=== PATIENT | female | born 1985 | race Caucasian/White ===

== ENCOUNTER → 2018-01-07 11:58 | Outpatient (CLI) | payer OTHER, SELFPAY | PROVIDERS: PCP Nurse Practitioner Family; Visit Provider Nurse Practitioner Family | DX: R00.0 Tachycardia, unspecified (principal) | CPT/HCPCS: 93225; 93226 ==

== ENCOUNTER → 2018-06-04 15:56 | Outpatient (CLI) | payer OTHER, SELFPAY ==
--- NOTE | 2018-06-04 16:13 | XR_ITS ---
EXAM: XR cervical spine 4V HISTORY: Neck pain ITS.REASON: CERVICALGIA ORDERING PHYSICIAN: Nitza Golden PATIENT AGE: 32 years COMPARISON: None FINDINGS: There is slight reversal of the upper cervical lordosis. This is nonspecific and may be due to patient positioning or muscle spasm. There is normal alignment. The disc spaces are well-preserved. No fracture or dislocation. No lytic or blastic change. No evidence of cervical rib. The foramina are widely patent. There is mild head tilt to the right which could also be seen with muscle spasm. IMPRESSION: 1. Slight reversal lordosis and minimal cervical curvature convex left may be seen with muscle spasm or patient positioning 2. Otherwise negative cervical spine
[2018-06-04 17:02] LABS: T4 (Thyroxine) 10.2 ug/dl (4.7-13.3); Thyroid Stimulating Hormone 3.27 uIU/ml (0.358-3.740)
[2018-06-07 09:32] LABS: Triiodothyronine (T3) Free 2.6 pg/mL (2.0-4.4)
== END ==
PROVIDERS: PCP Nurse Practitioner Family; Visit Provider Nurse Practitioner Family
DX: E01.0 Iodine-deficiency related diffuse (endemic) goiter (principal); M54.2 Cervicalgia
CPT/HCPCS: 36415; 72050; 84436; 84443; 84481

== ENCOUNTER 2018-06-21 20:45 | Observation (INO) ==
--- NOTE | 2018-06-21 21:03 | Emergency Department Note ---
ED Disposition Clinical Impression: Right ureteral calculus, Pyelonephritis Disposition: Still a Patient Condition on Discharge: Fair Referrals: Nitza Golden APRN [Primary Care Provider] - - Critical Care Critical Care Time: No Attestation: On , the high probability of a clinically significant, sudden or life threatening deterioration of the following system(s) required my full and direct attention, intervention and personal management. The time I documented below is in addition to time spent performing reported procedures but includes the following listed in this critical care notation. Medical Decision Making - Cj Inquiry Pt receiving controlled substance: No Vital Signs: 06/21/18 20:49 06/21/18 20:51 06/21/18 22:45 Temperature 100.0 F H 100.0 F H 98.6 F Temperature Source Oral Oral Oral Pulse Rate [Right Brachial] 138 H 138 H 105 H Respiratory Rate 16 16 16 Blood Pressure [Right Arm] 150/86 150/86 147/90 Blood Pressure Mean [Right Arm] 107 107 109 Blood Pressure Source [Right Arm] Automatic Cuff Automatic Cuff Blood Pressure Position [Right Arm] Sitting Sitting 02 Sat by Pulse Oximetry 98 98 97 Oxygen Delivery Method Room Air - Lab Data Lab Results 06/21/18 21:00: Urine Color Yellow, Urine Appearance Clear, Urine pH 7.5, Ur Specific [place] 1.010, Urine Protein Negative, Urine Glucose (UA) Negative, Urine Ketones Negative, Urine Blood Negative, Urine Nitrate Positive, Urine Bilirubin Negative, Urine Urobilinogen 0.2, Ur Leukocyte Esterase Trace, Urine RBC Occasional, Urine WBC 3-5, Ur Squamous Epith Cells 5-10, Urine Bacteria 1+ 06/21/18 21:00: Urine HCG, Qual Negative 06/21/18 21:20: WBC 11.6 H, RBC 4.76, Hgb 10.5 L, Hct 33.1 L, MCV 69.5 L, MCH 22.0 L, MCHC 31.7 L, RDW 16.1, Plt Count 297, MPV 7.0 L, Neut % (Auto) 85.3 H, Lymph % (Auto) 10.7, [place] % (Auto) 3.5, Eos % (Auto) 0.4, Baso % (Auto) 0.2, Neut # (Auto) 9.9 H, Lymph # (Auto) 1.2, [place] # (Auto) 0.4, Eos # (Auto) 0.0, Baso # (Auto) 0.0, Total Counted 100, Neutrophils % (Manual) 84 H, Lymphocytes % (Manual) 12, Monocytes % (Manual) 4, Platelet Estimate Normal, RBC Morphology Normal 06/21/18 21:20: Sodium 130 L, Potassium 3.5, Chloride 101, Carbon Dioxide 26, Anion Gap 6.5, BUN 7, Creatinine 0.70, Estimated Creat Clear 150, Estimated GFR 98, Est GFR ( Amer) 119, Glucose 110 H, Calcium 8.9, Total Bilirubin 0.3 , AST 8 L, ALT 21, Alkaline Phosphatase 86, Total Protein 7.6, Albumin 3.4, Globulin 4.2 H, Albumin/Globulin Ratio 0.8 L 06/21/18 21:20: Lactic Acid 0.9 Result diagrams: 06/21/18 21:20 06/21/18 21:20 Orders (Tests/Meds): ED MEDICATIONS Generic Name Dose Route Start Last Admin Trade Name Freq PRN Reason Stop Dose Admin Cefepime HCl 2 gm/ Sodium 100 mls @ 200 mls/hr 06/21/18 23:00 06/21/18 23:13 Chloride IV 07/05/18 22:59 200 mls/hr Q12H INEZ Administration Protocol Discontinued Medications Generic Name Dose Route Start Last Admin Trade Name Surendraq PRN Reason Stop Dose Admin Acetaminophen 1,000 mg 06/21/18 20:59 06/21/18 21:07 Tylenol 500mg Tablet PO 06/21/18 21:00 1,000 mg ONCE ONE Administration Sodium Chloride 1,000 mls @ 999 mls/hr 06/21/18 21:00 06/21/18 21:17 Sod Chlor 0.9% 1000ml Bag IV 06/21/18 22:00 999 mls/hr .Q1H1M INEZ Administration Iopamidol 75 ml 06/21/18 22:16 06/21/18 22:17 [id number]; 75ml Vial IV 06/21/18 22:17 75 ml ONCE ONE Administration Ketorolac Tromethamine 30 mg 06/21/18 20:57 06/21/18 21:34 Toradol 30mg/Ml Vial IV 06/21/18 20:58 30 mg ONCE ONE Administration Ondansetron HCl 4 mg 06/21/18 20:57 06/21/18 22:42 Zofran 4mg/2ml Vial IV 06/21/18 20:58 Not Given ONCE ONE Sodium Chloride 10 ml 06/21/18 22:16 06/21/18 22:17 Rad-Saline Flush 10ml Syringe IV 06/21/18 22:17 10 ml ONCE ONE Administration ORDERS Category Date Time Status CT abdomen pelvis w con Stat Cat Scan 06/21/18 21:31 Taken - CT Data CT Scan: Abdomen, Pelvis Time Received: 22:[address] Reviewed: Yes: I have viewed the radiologist's interpretation Findings Narrative: CT scan interpreted by [facility] radiologist. Faxed report received and reviewed: Obstructing 3.6 mm distal right ureteral calculus just proximal to the right UVJ with associated right hydroureter and moderate-marked right hydronephrosis. Suspected 2.5 x 2.8 cm right ovarian simple cyst. - Physician Consults Physician Consulted: Bhanu Time: 23:15 Reason -: Urology Eval/Care Comment/Response: May admit here as he will be here tomorrow. Admit to primary care, n.p.o. Antibiotics. Consult him. Additional Consult: Doni Time: 23:20 Reason -: Admission Comment/Response: Agrees to admit the patient to the hospital. We discussed the patient's clinical information, including history, exam, laboratory and radiology results and ED course. Per hospital procedure, I will write temporary bridge inpatient orders on the patient. Specific orders requested by the admitting physician: As per Dr. Drummond General Adult HPI - General Chief complaint: Urogenital-Female Stated complaint: possible uti Time Seen by Provider: 06/21/18 21:02 Mode of Arrival: Ambulatory Limitations: No Limitations Description of Symptoms (Recalled from ER Triage Doc. by RN): Reports she thinks she has a UTI, fever, lower abd pain. Burning sensation with urination. Requests ED. - History of Present Illness HPI narrative: He believes that she has a UTI. Since yesterday she has had some burning dysuria, improved today with Azo. Low back pain bilaterally. Suprapubic abdominal pain. Fever. She has a constant tremor, and this is chronic, no acute wrist. History of infrequent UTIs, every year or 2. Nausea, but no vomiting. No diarrhea. No vaginal discharge. Last intercourse was on Thursday 2 days ago. She did have pain with it at that time, which is not typical. - Related Data Home Medications Medication Instructions Recorded Confirmed Losartan Potassium 25 mg PO DAILY 06/21/18 06/21/18 Allergies Allergy/AdvReac Type Severity Reaction Status Date / Time morphine [MORPHINE] Allergy Unknown hvies Verified 06/21/18 20:55 Penicillins [PENICILLINS] Allergy Unknown Hives Verified 06/21/18 20:55 Beta-Blockers AdvReac Severe heart Verified 06/21/18 20:56 (Beta-Adrenergic Bloc arrythmia From COCONUT (FOOD/DRUG) Allergy Unknown Hives Uncoded 06/21/18 20:[address] [facility] History I have reviewed the patient's past medical history: Yes Medical History: Denies:: Cancer, Diabetes Mellitus Type 1, Diabetes Mellitus Type 2, MRSA Amputation: No Fractures: No - Social History Alcohol Intake: never - Psychiatric History Expresses thoughts of harming self/others: None Suicide Plan Description: No Plan ROS Obtained: Yes All systems reviewed & no additional complaints - Constitutional Constitutional: Reports fever(s) - Gastrointestinal Gastrointestingal: Reports: abdominal pain, nausea. Denies: vomiting - Genitourinary Female Genitourinary: Reports dysuria - Musculoskeletal Musculoskeletal: Reports back pain Physical Exam - General General appearance: alert, in no apparent distress - Head Head exam: atraumatic, normocephalic, normal inspection - Eye Eye exam: Present: normal appearance, PERRL, EOMI - ENT ENT exam: Present: mucous membranes moist - Neck Neck exam: Present: normal inspection, full ROM, trachea midline. Absent: meningismus, lymphadenopathy - Chest Chest inspection: Present: normal inspection, symmetric chest wall rise. Absent : tenderness - Respiratory Respiratory exam: Present: normal lung sounds bilaterally. Absent: respiratory distress - Cardiovascular Cardiovascular exam: Present: normal rhythm, tachycardia. Absent: JVD - Abdominal Exam Abdominal exam: Present: soft, tenderness, normal bowel sounds. Absent: distention, guarding Abdominal tenderness: Present: suprapubic - Extremities Exam Extremities exam: Present: normal inspection, full ROM, normal capillary refill. Absent: calf tenderness - Back Exam Back exam: Present: normal inspection. Absent: tenderness, CVA tenderness (R), CVA tenderness (L) - Neurological Exam Neurological exam: Present: alert, oriented X3 - Psychiatric Psychiatric exam: Present: normal affect, normal mood - Skin Skin exam: Present: warm, dry, intact, normal color
[2018-06-21 21:07] LABS: Microscopic, Urine URINE MICROSCOPIC (MICROSCOPIC)
[2018-06-21 21:10] LABS: Appearance,Urine CLEAR (Clear); Bilirubin,Urine Negative (Negative); Blood, Urine Negative (Negative); Color,Urine YELLOW (Yellow); Glucose,Urine (UA) Negative (Negative); Ketones,Urine Negative (Negative); Leukocyte Esterase,Urine TRACE (Negative); PH,Urine 7.5 (5.0-8.5); Protein,Urine Negative (Negative); Urobilinogen,Urine 0.2 EU/dl (0.2)
[2018-06-21 21:22] LABS: Bacteria,Urine 1+ /lpf; RBC,Urine Occasional #/hpf (0-3)
[2018-06-21 21:33] LABS: Basophils % 0.2 % (0.1-2.0); Eosinophils % 0.4 % (0.1-12.0); Hematocrit 33.1 % (37.0-47.0); Hemoglobin 10.5 g/dL (12.2-16.2); Lymphocytes # 1.2 K/mm3 (0.7-4.5); Lymphocytes % 10.7 K/mm3 (10-50); Mean Corpuscular HGB Conc 31.7 g/dL (31.8-35.4); Mean Corpuscular Volume 69.5 fl (81-99); Monocytes # 0.4 K/mm3 (0.1-1.0); Monocytes % 3.5 % (1.7-9.3); Neutrophils # 9.9 K/mm3 (1.8-7.8); Neutrophils % 85.3 % (37.0-80.0); Platelet Count 297 K/mm3 (142-424); Red Blood Count 4.76 M/mm3 (4.20-5.40); Red Cell Distribution Width 16.1 % (11.5-17.5); White Blood Count 11.6 K/mm3 (4.8-10.8)
[2018-06-21 21:45] LABS: Albumin Level 3.4 gm/dL (3.4-5.0); Albumin/Globulin Ratio 0.8 (1.1-1.8); Bilirubin,Total 0.3 mg/dL (0.2-1.0); Calcium 8.9 mg/dL (8.5-10.1); Globulin 4.2 gm/dl (1.3-3.2); Total Protein,Serum 7.6 gm/dL (6.4-8.2)
[2018-06-21 21:52] LABS: Anion Gap 6.5 mEq/L (5-15); Potassium 3.5 mmoL/L (3.5-5.1)
[2018-06-21 22:26] LABS: Lymphocytes % 12 % (10-50); Monocytes % 4 % (2-9); Neutrophils % 84 % (42-76); RBC Morphology Normal; Total Cells Counted 100
[2018-06-22 06:50] LABS: Basophils % 0.3 % (0.1-2.0); Eosinophils % 0.4 % (0.1-12.0); Lymphocytes # 1.2 K/mm3 (0.7-4.5); Lymphocytes % 22.1 K/mm3 (10-50); Mean Corpuscular HGB Conc 30.9 g/dL (31.8-35.4); Mean Corpuscular Hemoglobin 21.8 pg (27.0-31.2); Mean Corpuscular Volume 70.5 fl (81-99); Mean Platelet Volume 8.2 fl (7.4-10.4); Monocytes # 0.4 K/mm3 (0.1-1.0); Monocytes % 6.6 % (1.7-9.3); Neutrophils # 3.7 K/mm3 (1.8-7.8); Neutrophils % 70.6 % (37.0-80.0); Platelet Count 233 K/mm3 (142-424); Red Cell Distribution Width 16.2 % (11.5-17.5); White Blood Count 5.3 K/mm3 (4.8-10.8)
--- NOTE | 2018-06-22 06:55 | History & Physical Report ---
*Admission Date: 06/22/18 *Chief complaint: Back and right flank pain *History of present illness: 32-year-old female with history of hypertension and SVT presented to the emergency department with 48 hours of back pain that had associated right flank pain radiating into the groin. Patient reports onset of mild discomfort and pressure in the lower back on Thursday, June 19. By Thursday pain had begun to radiate around both sides but was more intense on the right. By Thursday pain had become so severe and had associated nausea and fevers that she sought treatment at the emergency department. Up to that point patient had taken Azo because she believes she was getting a urinary tract infection. In the emergency department patient underwent evaluation and had findings of an elevated white blood cell count with abnormal urinalysis and a CT scan revealing an obstructing stone at the right UVJ with mild hydronephrosis. There was concern for early pyelonephritis. Discussion was had with on-call urology and patient has been admitted for IV antibiotics, IV fluids and neurologic evaluation. Patient has never had a kidney stone before and does not believe there is any significant family history of stones [facility] History I have reviewed the patient's past medical history: Yes Medical History: Reports:: Arrhythmia (SVT), Hypertension Denies:: Cancer, Diabetes Mellitus Type 1, Diabetes Mellitus Type 2, MRSA Other Surgeries: Yes: , Tubal Ligation Amputation: No Fractures: No - *Social History Educational Level: Completed High School Alcohol Intake: never Occupational Status: other - Psychiatric History Expresses thoughts of harming self/others: None Suicide Plan Description: No Plan Review of Systems - Review of Systems Review of systems:: pertinent systems reviewed and negative unless documented below - Constitutional Reports fever(s), Reports weakness, Denies body ache(s), Denies chills - *Cardiovascular Denies chest pain - *Respiratory Denies chest congestion, Denies cough - *Gastrointestinal Reports nausea Meds Home Medications Medication Instructions Recorded Confirmed Type Losartan Potassium 25 mg PO DAILY 06/21/18 06/21/18 History Allergies Allergy/AdvReac Type Severity Reaction Status Date / Time buspirone [From BuSpar] Allergy Unknown Verified 06/22/18 00:20 morphine [MORPHINE] Allergy Unknown hvies Verified 06/21/18 20:55 Penicillins [PENICILLINS] Allergy Unknown Hives Verified 06/21/18 20:55 Beta-Blockers AdvReac Severe heart Verified 06/21/18 20:56 (Beta-Adrenergic Bloc arrythmia From COCONUT (FOOD/DRUG) Allergy Unknown Hives Uncoded 06/21/18 20:55 Exam Vital signs and Labs for Last 24 Hours: Temp Pulse Resp BP Pulse Ox 98.4 F 98 H 18 151/95 96 06/22/18 04:00 06/22/18 04:00 06/22/18 04:00 06/22/18 04:00 06/22/18 04:00 Laboratory Results - last 24 hr 06/21/18 21:00: Urine Color Yellow, Urine Appearance Clear, Urine pH 7.5, Ur Specific [place] 1.010, Urine Protein Negative, Urine Glucose (UA) Negative, Urine Ketones Negative, Urine Blood Negative, Urine Nitrate Positive, Urine Bilirubin Negative, Urine Urobilinogen 0.2, Ur Leukocyte Esterase Trace, Urine RBC Occasional, Urine WBC 3-5, Ur Squamous Epith Cells 5-10, Urine Bacteria 1+ 06/21/18 21:00: Urine HCG, Qual Negative 06/21/18 21:20: WBC 11.6 H, RBC 4.76, Hgb 10.5 L, Hct 33.1 L, MCV 69.5 L, MCH 22.0 L, MCHC 31.7 L, RDW 16.1, Plt Count 297, MPV 7.0 L, Neut % (Auto) 85.3 H, Lymph % (Auto) 10.7, [place] % (Auto) 3.5, Eos % (Auto) 0.4, Baso % (Auto) 0.2, Neut # (Auto) 9.9 H, Lymph # (Auto) 1.2, [place] # (Auto) 0.4, Eos # (Auto) 0.0, Baso # (Auto) 0.0, Total Counted 100, Neutrophils % (Manual) 84 H, Lymphocytes % (Manual) 12, Monocytes % (Manual) 4, Platelet Estimate Normal, RBC Morphology Normal 06/21/18 21:20: Sodium 130 L, Potassium 3.5, Chloride 101, Carbon Dioxide 26, Anion Gap 6.5, BUN 7, Creatinine 0.70, Estimated Creat Clear 150, Estimated GFR 98, Est GFR ( Amer) 119, Glucose 110 H, Calcium 8.9, Total Bilirubin 0.3 , AST 8 L, ALT 21, Alkaline Phosphatase 86, Total Protein 7.6, Albumin 3.4, Globulin 4.2 H, Albumin/Globulin Ratio 0.8 L 06/21/18 21:20: Lactic Acid 0.9 I & O for Last 24 hours: Intake & Output 06/19/18 06/20/18 06/21/18 06/22/18 11:59 11:59 11:59 11:59 Intake Total 2493 / 2493 Output Total 150 / 150 Balance 2343 / 2343 Weight 178 lb Narrative: Patient is awake and alert and ambulating in the room this morning. HEENT exam is grossly normal. Neck is without lymphadenopathy or thyromegaly. Lungs are clear to auscultation bilaterally. Heart has a regular rate and rhythm. Back is without CVA tenderness. Abdomen is soft, nontender, nondistended. Neurologically there are no deficits. Skin is warm to the touch and without rashes. H&P: Result - Labs Labs: Short CBC 06/21/18 Range/Units 21:20 WBC 11.6 H (4.8-10.8) K/mm3 Hgb 10.5 L (12.2-16.2) g/dL Hct 33.1 L (37.0-47.0) % Plt Count 297 (142-424) K/mm3 BMP 06/21/18 21:20 Sodium 130 L Potassium 3.5 Chloride 101 Carbon Dioxide 26 BUN 7 Creatinine 0.70 Glucose 110 H Calcium 8.9 Liver Function 06/21/18 Range/Units 21:20 Total Bilirubin 0.3 (0.2-1.0) mg/dL AST 8 L (15-37) U/L ALT 21 (12-78) U/L Alkaline Phosphatase 86 (46-116) U/L Albumin 3.4 (3.4-5.0) gm/dL Urine 06/21/18 Range/Units 21:00 Urine Color Yellow (Yellow) Urine Appearance Clear (Clear) Urine pH 7.5 (5.0-8.5) Ur Specific [place] 1.010 (1.005-1.030) Urine Protein Negative (Negative) Urine Glucose (UA) Negative (Negative) Assessment and Plan (1) Right ureteral calculus Current visit: Yes Status: Acute Category: Medical Code(s): N20.1 - Calculus of ureter (2) Pyelonephritis Current visit: Yes Status: Acute Category: Medical Code(s): N12 - Tubulo- interstitial nephritis, not specified as acute or chronic - Assessment and plan all Dx Assessment and Plan for all problems:: She has right ureterolithiasis with findings of early Lalo. Continue cefepime. Urologic consultation for stone extraction. Monitor for fever
[2018-06-22 06:57] LABS: Anion Gap 9.3 mEq/L (5-15); Potassium 3.3 mmoL/L (3.5-5.1)
[2018-06-22 07:05] LABS: Red Blood Count 4.53 M/mm3 (4.20-5.40)
[2018-06-22 07:06] LABS: Hematocrit 31.9 % (37.0-47.0)
[2018-06-22 07:10] LABS: Calcium 8.1 mg/dL (8.5-10.1)
--- NOTE | 2018-06-22 07:47 | Pharmacy Consult Notes ---
[facility] Pharmacy VTE Monitoring - Patient Demographics Admission date: 06/22/18 Report Date: 06/22/18 Time: 07:47 Allergies/Adverse Reactions: Patient Allergies buspirone [From BuSpar] Allergy (Unknown, Verified 06/22/18 07:41) UNKNOWN morphine [MORPHINE] Allergy (Unknown, Verified 06/22/18 07:45) Hives Penicillins [PENICILLINS] Allergy (Unknown, Verified 06/21/18 20:55) Hives coconut Allergy (Verified 06/22/18 07:41) Hives Beta-Blockers (Beta-Adrenergic Bloc Adverse Reaction (Severe, Verified 06/21/18 20:56) heart arrythmia Height: 1.6 m Weight: 80.739 kg Patient Problems: Current Active Problems Right ureteral calculus (Acute) Pyelonephritis (Acute) - VTE Risk Labs: VTE Related Lab Results Hgb 10.0 g/dL (12.2-16.2) L 06/22/18 06:17 Hct 31.9 % (37.0-47.0) L 06/22/18 06:17 Plt Count 233 K/mm3 (142-424) 06/22/18 06:17 BUN 5 mg/dL (7-18) L D 06/22/18 06:17 Creatinine 0.60 mg/dL (0.55-1.02) 06/22/18 06:17 Estimated Creat Clear 175 mL/min (0-300) 06/22/18 06:17 Was VTE Risk Assessment Performed: Yes VTE Score: 0 VTE Risk Level: Very Low Risk Clinical Trial Participant: No - Prophylaxis VTE Prophylaxis Ordered?: Yes Types of VTE Prophylaxis: TEDS Knee High Location of Applied Device: Bilateral Lower Extremeties
--- NOTE | 2018-06-22 12:10 | Progress Note ---
[facility] Anesthesia Checklist - Patient Identification Patient Identification: Arm Band - Structural Data Admitted From: Home Planned Operative Procedure/s: cystoscopy with right ureteral stent placement Consent for Planned Operative Procedure(s) Verified: Yes Verified Documents: Surgical Consent, History and Physical - NPO Status Verified Time NPO: 00:00 - Additional verifications Anesthesia Reactions: No - Airway Assessment C-Spine Mobility Assessed: Yes (mp2) TMJ Mobility Assessed: Yes Dentition: Good Dentition - Neurological Assessment Level of Consciousness: Awake, Alert - Anesthesia Plan Anesthesia Risk discussed: Yes Anesthesia Plan: Verified ASA Class: II Anesthesia Type: General [facility] Anesthesia HX I have reviewed the patient's past medical history: Yes Medical History: Reports:: Anxiety, Arrhythmia (SVT), Hypertension Denies:: Cancer, Diabetes Mellitus Type 1, Diabetes Mellitus Type 2, MRSA Other Surgeries: Yes: , Tubal Ligation Amputation: No Fractures: No
--- NOTE | 2018-06-22 12:10 | Progress Note ---
[facility] Anesthesia Record Part I Intake, IV Amount: 500 Estimated blood loss (mL): 0 Urine output (mL): 0 Blood Pressure: 137/82 SaO2: 96 Pulse Rate: 103 Respiratory Rate: 16 Temperature: 97.8 F Patient is:: Drowsy, Stable Stable to PACU at:: 12:05
--- NOTE | 2018-06-22 12:11 | Progress Note ---
[facility] Anesthesia Record Part II Discharge Time: 12:35 Destination: 2nd floor PACU nurse assessment reviewed?: Yes Patient Condition:: Good Anesthesia Complications:: None
--- NOTE | 2018-06-22 18:09 | Consult Report ---
*Admission Date: 06/22/18 *Chief complaint: Right ureteral calculus with urinary infection *History of present illness: 32-year-old female with history of hypertension and SVT presented to the emergency department with 48 hours of back pain that had associated right flank pain radiating into the groin. Patient reports onset of mild discomfort and pressure in the lower back on Thursday, June 19. By Thursday pain had begun to radiate around both sides but was more intense on the right. By Thursday pain had become so severe and had associated nausea and fevers that she sought treatment at the emergency department. Up to that point patient had taken Azo because she believes she was getting a urinary tract infection. In the emergency department patient underwent evaluation and had findings of an elevated white blood cell count with abnormal urinalysis and a CT scan revealing an obstructing stone at the right UVJ with mild hydronephrosis. There was concern for early pyelonephritis. Discussion was had with on-call urology and patient has been admitted for IV antibiotics, IV fluids and neurologic evaluation. Patient has never had a kidney stone before and does not believe there is any significant family history of stones I was asked to see the patient for the above complaints. States it for 2 days prior she was having some generalized malaise and aches. She presented to the emergency room with a 3.5 since the millimeters stone in the right ureterovesical junction. To her knowledge she has not passed the stone. Concerns of pyelonephritis and sepsis we discussed urgent cystoscopy with stent placement to decompress her right kidney. We understand that this may require likely second procedure to deal with her stone once infection is cleared. Urine cultures pending. She understands and wished to proceed. Her is present during discussion. Arrange for cystoscopy with right ureteral stent placement. Review of Systems - *Neurologic Reports weakness [facility] History Medical History: Reports:: Anxiety, Arrhythmia (SVT), Hypertension Denies:: Cancer, Diabetes Mellitus Type 1, Diabetes Mellitus Type 2, MRSA Other Surgeries: Yes: , Tubal Ligation Amputation: No Fractures: No - *Social History Educational Level: Completed High School Alcohol Intake: never Occupational Status: other - Psychiatric History Expresses thoughts of harming self/others: None Suicide Plan Description: No Plan Pschychiatric History:: Reports:: Anxiety Meds Home Medications Medication Instructions Recorded Confirmed Type Losartan Potassium 25 mg PO DAILY 06/21/18 06/21/18 History Allergies Allergy/AdvReac Type Severity Reaction Status Date / Time buspirone [From BuSpar] Allergy Unknown UNKNOWN Verified 06/22/18 07:41 morphine [MORPHINE] Allergy Unknown Hives Verified 06/22/18 07:45 Penicillins [PENICILLINS] Allergy Unknown Hives Verified 06/21/18 20:55 coconut Allergy Hives Verified 06/22/18 07:41 Beta-Blockers AdvReac Severe heart Verified 06/21/18 20:56 (Beta-Adrenergic Bloc arrythmia Exam Vital signs and Labs for Last 24 Hours: Temp Pulse Resp BP Pulse Ox 97.2 F L 100 H 16 132/88 96 06/22/18 16:25 06/22/18 16:25 06/22/18 16:25 06/22/18 16:25 06/22/18 16:25 Laboratory Results - last 24 hr 06/21/18 21:00: Urine Color Yellow, Urine Appearance Clear, Urine pH 7.5, Ur Specific [place] 1.010, Urine Protein Negative, Urine Glucose (UA) Negative, Urine Ketones Negative, Urine Blood Negative, Urine Nitrate Positive, Urine Bilirubin Negative, Urine Urobilinogen 0.2, Ur Leukocyte Esterase Trace, Urine RBC Occasional, Urine WBC 3-5, Ur Squamous Epith Cells 5-10, Urine Bacteria 1+ 06/21/18 21:00: Urine HCG, Qual Negative 06/21/18 21:20: WBC 11.6 H, RBC 4.76, Hgb 10.5 L, Hct 33.1 L, MCV 69.5 L, MCH 22.0 L, MCHC 31.7 L, RDW 16.1, Plt Count 297, MPV 7.0 L, Neut % (Auto) 85.3 H, Lymph % (Auto) 10.7, [place] % (Auto) 3.5, Eos % (Auto) 0.4, Baso % (Auto) 0.2, Neut # (Auto) 9.9 H, Lymph # (Auto) 1.2, [place] # (Auto) 0.4, Eos # (Auto) 0.0, Baso # (Auto) 0.0, Total Counted 100, Neutrophils % (Manual) 84 H, Lymphocytes % (Manual) 12, Monocytes % (Manual) 4, Platelet Estimate Normal, RBC Morphology Normal 06/21/18 21:20: Sodium 130 L, Potassium 3.5, Chloride 101, Carbon Dioxide 26, Anion Gap 6.5, BUN 7, Creatinine 0.70, Estimated Creat Clear 150, Estimated GFR 98, Est GFR ( Amer) 119, Glucose 110 H, Calcium 8.9, Total Bilirubin 0.3 , AST 8 L, ALT 21, Alkaline Phosphatase 86, Total Protein 7.6, Albumin 3.4, Globulin 4.2 H, Albumin/Globulin Ratio 0.8 L 06/21/18 21:20: Lactic Acid 0.9 06/22/18 06:17: WBC 5.3 D, RBC 4.53, Hgb 10.0 L, Hct 31.9 L, MCV 70.5 L, MCH 21.8 L, MCHC 30.9 L, RDW 16.2, Plt Count 233, MPV 8.2, Neut % (Auto) 70.6, Lymph % (Auto) 22.1, [place] % (Auto) 6.6, Eos % (Auto) 0.4, Baso % (Auto) 0.3, Neut # (Auto) 3.7, Lymph # (Auto) 1.2, [place] # (Auto) 0.4, Eos # (Auto) 0.0, Baso # (Auto) 0.0 06/22/18 06:17: Sodium 141, Potassium 3.3 L, Chloride 108 H, Carbon Dioxide 27, Anion Gap 9.3, BUN 5 L D, Creatinine 0.60, Estimated Creat Clear 175, Estimated GFR 117, Est GFR ( Amer) 142, Glucose 91, Calcium 8.1 L I & O for Last 24 hours: Intake & Output 06/19/18 06/20/18 06/21/18 06/22/18 23:59 23:59 23:59 23:59 Intake Total 1600 / 1600 2043 / 2043 Output Total 750 / 750 Balance 1600 / 1600 1293 / 1293 Weight 80.739 kg 80.739 kg Results - Labs 06/22/18 06:17 06/22/18 06:17 Laboratory Results - last 24 hr 06/21/18 21:00: Urine Color Yellow, Urine Appearance Clear, Urine pH 7.5, Ur Specific [place] 1.010, Urine Protein Negative, Urine Glucose (UA) Negative, Urine Ketones Negative, Urine Blood Negative, Urine Nitrate Positive, Urine Bilirubin Negative, Urine Urobilinogen 0.2, Ur Leukocyte Esterase Trace, Urine RBC Occasional, Urine WBC 3-5, Ur Squamous Epith Cells 5-10, Urine Bacteria 1+ 06/21/18 21:00: Urine HCG, Qual Negative 06/21/18 21:20: WBC 11.6 H, RBC 4.76, Hgb 10.5 L, Hct 33.1 L, MCV 69.5 L, MCH 22.0 L, MCHC 31.7 L, RDW 16.1, Plt Count 297, MPV 7.0 L, Neut % (Auto) 85.3 H, Lymph % (Auto) 10.7, [place] % (Auto) 3.5, Eos % (Auto) 0.4, Baso % (Auto) 0.2, Neut # (Auto) 9.9 H, Lymph # (Auto) 1.2, [place] # (Auto) 0.4, Eos # (Auto) 0.0, Baso # (Auto) 0.0, Total Counted 100, Neutrophils % (Manual) 84 H, Lymphocytes % (Manual) 12, Monocytes % (Manual) 4, Platelet Estimate Normal, RBC Morphology Normal 06/21/18 21:20: Sodium 130 L, Potassium 3.5, Chloride 101, Carbon Dioxide 26, Anion Gap 6.5, BUN 7, Creatinine 0.70, Estimated Creat Clear 150, Estimated GFR 98, Est GFR ( Amer) 119, Glucose 110 H, Calcium 8.9, Total Bilirubin 0.3 , AST 8 L, ALT 21, Alkaline Phosphatase 86, Total Protein 7.6, Albumin 3.4, Globulin 4.2 H, Albumin/Globulin Ratio 0.8 L 06/21/18 21:20: Lactic Acid 0.9 06/22/18 06:17: WBC 5.3 D, RBC 4.53, Hgb 10.0 L, Hct 31.9 L, MCV 70.5 L, MCH 21.8 L, MCHC 30.9 L, RDW 16.2, Plt Count 233, MPV 8.2, Neut % (Auto) 70.6, Lymph % (Auto) 22.1, [place] % (Auto) 6.6, Eos % (Auto) 0.4, Baso % (Auto) 0.3, Neut # (Auto) 3.7, Lymph # (Auto) 1.2, [place] # (Auto) 0.4, Eos # (Auto) 0.0, Baso # (Auto) 0.0 06/22/18 06:17: Sodium 141, Potassium 3.3 L, Chloride 108 H, Carbon Dioxide 27, Anion Gap 9.3, BUN 5 L D, Creatinine 0.60, Estimated Creat Clear 175, Estimated GFR 117, Est GFR ( Amer) 142, Glucose 91, Calcium 8.1 L Assessment and Plan (1) Right ureteral calculus Current visit: Yes Status: Acute Category: Medical Code(s): N20.1 - Calculus of ureter (2) Pyelonephritis Current visit: Yes Status: Acute Category: Medical Code(s): N12 - Tubulo- interstitial nephritis, not specified as acute or chronic
--- NOTE | 2018-06-22 18:12 | Operative Note ---
Date of procedure: 06/22/18 Pre-op Diagnosis:: Right distal ureteral calculus with urinary infection Post-op Diagnosis:: Same Procedure performed:: Cystoscopy with right ureteral stent placement Surgeon:: De Drummond MD EDGE BANDING OFF BEARER:: Uziel Cain Anesthesia: GETA Estimated blood loss (mL): 0 Clinical Note:: Patient presents to the emergency room last evening with urinary infection. She was also found to have a 3.5 mm stone right ureterovesical junction. She is brought to the operating room for decompression urgently. Operative findings:: No gross purulence. Stent placed without difficulty. String removed Operative note:: For satisfactory general anesthesia she was carefully placed in the dorsolithotomy position. Genital area was prepped and draped in standard fashion. 22 Frisian cystoscope sheath was introduced. 30 lens was used to inspect the bladder. She has a tiny amount of sand within the bladder. A 0.035 zip wire was easily advanced up the right ureter. Stent was placed. Good coil in the kidney and coil in the bladder. String was removed. She was carefully returned to the 5 position. She was awakened and extubated and transferred to the postop recovery room in stable condition. Condition: stable Disposition: PACU Specimens:: None Complications:: No complications. We will await her urine culture. She will follow-up with me in 1 week to arrange for stone treatment.
--- NOTE | 2018-06-23 06:52 | Discharge Summary ---
General - General Admission date:: 06/21/18 Discharge date: 06/23/18 HPI HPI: 32-year-old female with history of hypertension and SVT presented to the emergency department with 48 hours of back pain that had associated right flank pain radiating into the groin. Patient reports onset of mild discomfort and pressure in the lower back on Thursday, June 19. By Thursday pain had begun to radiate around both sides but was more intense on the right. By Thursday pain had become so severe and had associated nausea and fevers that she sought treatment at the emergency department. Up to that point patient had taken Azo because she believes she was getting a urinary tract infection. In the emergency department patient underwent evaluation and had findings of an elevated white blood cell count with abnormal urinalysis and a CT scan revealing an obstructing stone at the right UVJ with mild hydronephrosis. There was concern for early pyelonephritis. Discussion was had with on-call urology and patient has been admitted for IV antibiotics, IV fluids and neurologic evaluation. Patient has never had a kidney stone before and does not believe there is any significant family history of stones Hospital Course Hospital Course: Patient was admitted and placed on IV cefepime and made n.p.o. on June 22 patient underwent cystoscopy with right ureteral stent placement. There was no purulence behind the stone. Patient was maintained on antibiotics. After her procedure her diet was advanced and she tolerated this with some nausea. After patient did well in a postprocedural monitoring. She was discharged home on the morning of June 23. Patient will follow up with Dr. Drummond and follow-up with my nurse practitioner Vannessa Golden at her scheduled appointment on July 02. While regional goal had been to wait for patient's urine culture prior to discharge apparently her urinalysis on admission was not severe enough to trigger a culture despite being nitrite positive. Patient was discharged home on Bactrim Objective Vital signs: Temp Pulse Resp BP Pulse Ox 98.2 F 81 20 156/106 96 06/23/18 04:00 06/23/18 04:00 06/23/18 04:00 06/23/18 04:00 06/23/18 04:00 Results Labs on day of discharge: Labs from last 24 hours 06/22/18 06/22/18 06:17 06:17 WBC 5.3 D RBC 4.53 Hgb 10.0 L Hct 31.9 L MCV 70.5 L MCH 21.8 L MCHC 30.9 L RDW 16.2 Plt Count 233 MPV 8.2 Neut % (Auto) 70.6 Lymph % (Auto) 22.1 [place] % (Auto) 6.6 Eos % (Auto) 0.4 Baso % (Auto) 0.3 Neut # (Auto) 3.7 Lymph # (Auto) 1.2 [place] # (Auto) 0.4 Eos # (Auto) 0.0 Baso # (Auto) 0.0 Sodium 141 Potassium 3.3 L Chloride 108 H Carbon Dioxide 27 Anion Gap 9.3 BUN 5 L D Creatinine 0.60 Estimated Creat Clear 175 Estimated GFR 117 Est GFR ( Amer) 142 Glucose 91 Calcium 8.1 L DS: Diagnosis - Discharge Diagnosis (1) Right ureteral calculus Status: Acute (2) Pyelonephritis Status: Acute Discharge Plan - Patient Discharge Instructions ACTIVITY: Continue current activity DIET: continue same diet - Follow up Plan Follow up with: De Drummond MD [Staff Physician] - 1 week Nitza Golden APRN [Primary Care Provider] - 07/02/18 Disposition: Home, Self-Longterm Medications: Home Medications Medication Instructions Recorded Confirmed Type Losartan Potassium 25 mg PO DAILY 06/21/18 06/21/18 History Prescriptions/Medication Reconciliation: New Sulfamethoxazole/Trimethoprim [Bactrim DS tablet] 1 each PO BID #14 tab Ibuprofen [Ibuprofen 600mg Tab] 600 mg PO Q6HP PRN #60 tab PRN Reason: Moderate To Severe Pain Promethazine HCl [Phenergan 25mg tab] 25 mg PO Q6HP PRN #30 tab PRN Reason: Nausea And Vomiting Continue Losartan Potassium 25 mg PO DAILY
== END 2018-06-23 09:00 | disposition home or self-care (01) ==
LOC: 2ND 20:45 → ER 20:45 → 2ND 23:47
PROVIDERS: ADMIT Family Medicine; ATTEND Family Medicine
DX: N20.1 Calculus of ureter

== ENCOUNTER → 2018-07-02 14:32 | Outpatient (CLI) | payer OTHER, SELFPAY ==
[2018-07-06 16:03] LABS: Histamine, Plasma 0.31 ng/mL (<1.00)
== END ==
PROVIDERS: Visit Provider Nurse Practitioner Family
DX: F41.0 Panic disorder [episodic paroxysmal anxiety] (principal)
CPT/HCPCS: 36415; 83088; 84260

== ENCOUNTER → 2018-08-27 07:45 | Outpatient (CLI) | payer OTHER, SELFPAY ==
--- NOTE | 2018-08-27 07:50 | CA_ITS ---
PROCEDURE: 2-D M-mode and color Doppler study INDICATIONS FOR THE TEST: Chest pain COPD Heart Murmur Tobacco Smoking PalpitationsX Fatigue Syncope Edema HypertensionXDiabetes Mellitus Rheumatic Fever SOB MARK Obesity Hyperlipidemia Family History HD Additional History SVT, MVP PATIENT INFORMATION HEIGHT: 64 WEIGHT:175 GENDER: Female B/P:150/90 2-D/M-MODE INTERPRETATION: 2-D MEASUREMENTS OBSERVED VALUES IN CMS Right Ventricular Dimension (RVDd) 2.0 Interventricular Septum (Thickness)(IVsd) .7 Left Ventricular Internal Dimensions(LVIDd) 5.7 Left Ventricular Posterior Wall (Thickness)(LVPWd) .9 Aortic Root 3.1 Aortic Cusp Separation 2.2 Left Atrial Dimensions (LAD) 3.4 2D 1. Left atrium is normal size, left ventricle is normal size, there is no concentric left ventricular hypertrophy, visually estimated ejection fraction 55% with no regional wall motion abnormality. 2. The right atrium and right ventricle are normal size and contractility. 3. The aortic, mitral and tricuspid valve are grossly normal, there is no obvious mitral valve prolapse seen. 4. The pulmonic valve is poorly visualized. 5. No significant pericardial effusion noted. DOPPLER INTERROGATION: Doppler interrogation of the aortic, mitral and tricuspid valvular presence of mild mitral and tricuspid regurgitation, tricuspid regurgitation jet velocity is insufficient for calculation of the right ventricular systolic pressure, diastolic parameters are within normal range. CONCLUSION: 1. Normal left ventricular size, preserved left ventricular systolic function, visually estimated ejection fraction 55% with no regional wall motion abnormality, diastolic parameters are within normal range. 2. Mild mitral and tricuspid regurgitation. 3. No significant pericardial effusion noted.
== END ==
PROVIDERS: Family Provider Family Medicine; PCP Nurse Practitioner Family; Visit Provider Physician Assistant
DX: I34.1 Nonrheumatic mitral (valve) prolapse (principal); R00.2 Palpitations; I10 Essential (primary) hypertension
CPT/HCPCS: 93306

== ENCOUNTER → 2019-01-14 10:44 | Outpatient (CLI) | payer OTHER, SELFPAY ==
--- NOTE | 2019-01-14 10:48 | XR_ITS ---
XR KUB HISTORY: ITS.REASON: ACUTE CYSTITIS W/O HEMATURIA ORDERING PHYSICIAN: Nitza Golden PATIENT AGE: 33 years COMPARISON: None FINDINGS: There are multiple bilateral renal calculi. These measure up to 3 mm in the lower pole on the right and 1 to 2 mm in the mid to lower pole on the left. No obvious ureteral calculi. There is a left-sided lower pelvic calcification felt to be due to phlebolith. Tubal ligation clips are present on the left IMPRESSION: Bilateral nephrolithiasis
== END ==
PROVIDERS: PCP Nurse Practitioner Family; Visit Provider Nurse Practitioner Family
DX: N30.00 Acute cystitis without hematuria (principal)
CPT/HCPCS: 74018

== ENCOUNTER 2020-06-24 14:28 | Emergency (ER) | payer OTHER, SELFPAY ==
[2020-06-24 15:14] VITALS: BP 135/91; PULSE 92; RESP 20; TEMP 36.7; O2SAT 99; BMI 34.3
[2020-06-24 15:19] LABS: UTC Strep Screen (Rapid) Negative (Negative)
--- NOTE | 2020-06-24 15:28 | HMH.EDUTC ---
[facility] [place] Disposition Clinical Impression: Streptococcus exposure Maxillary sinusitis, acute Qualifiers: Recurrence: non-recurrent Qualified Code(s): J01.00 - Acute maxillary sinusitis, unspecified Disposition: Home Health Service Condition on Discharge: Good Instructions: Sinusitis, DI for Sinusitis Additional Instructions: Start antibiotics today be sure to take it as ordered with the full length of time although you should start feeling better in 24-48 hours. Change toothbrush and toothpaste 24-48 hours after starting antibiotics Tylenol or Motrin as needed for fever or pain Encourage fluids, water, Gatorade, Powerade, try cold fluids, popsicles, ice cream will make it feel better You are contagious for 24 hours. Avoid kissing anyone, no eating or drinking after anyone. You are contagious. Follow-up the ER for new or worsening symptoms or no noticeable improvement over the next 24-48 hours. Follow-up with PCP this week. start antibiotic patient to take as ordered for a full length of time even if you feel better. Sinus infections do not get better overnight. It may take 2-3 days to notice much improvement so be sure to use conservative measures as discussed for symptoms. Flonase 1 spray each nostril daily to help with nasal congestion, sinus and ear pressure/information Increase fluids Humidifier/vaporizer as needed Tylenol and ibuprofen as needed for fever or pain. If symptoms do not improve or get worse return or be seen in the ER Follow-up with primary care this week quaratine until covid results are neg Prescriptions: Fluticasone Propionate [Flonase 50mcg nasal spray 16gm] 1 spr NS DAILY 7 Days #1 bottle Prescription Printed Azithromycin [Zithromax 250mg tab] 250 mg PO DIRECTED #6 tab Prescription Printed Referrals: Nitza Golden APRN [Primary Care Provider] - Forms: Work/School Release Time of Disposition: 15:38 Medical Decision Making - Cj Inquiry Pt receiving controlled substance: No Vital Signs: 06/24/20 15:14 Temperature 98.1 F Temperature Source Oral Pulse Rate [Right Brachial] 92 H Respiratory Rate 20 Blood Pressure [Right Arm] 135/91 H Blood Pressure Mean [Right Arm] 105 Blood Pressure Source [Right Arm] Automatic Cuff Blood Pressure Position [Right Arm] Sitting 02 Sat by Pulse Oximetry 99 Oxygen Delivery Method Room Air - Lab Data Lab Results 06/24/20 15:08: Strep Scn Rapid Clinic Negative Orders (Tests/Meds): ORDERS Category Date Time Status SARS-CoV-2, EBER Stat Lab 06/24/20 15:11 Ordered Strep Screen Confirmation Stat Micro 06/24/20 15:08 Received [facility] [place] HPI - General Chief complaint: Urgent Treatment Center Stated complaint: head congestion Time Seen by Provider: 06/24/20 15:28 Mode of Arrival: Ambulatory Source of Information: Patient Limitations: No Limitations Description of Symptoms (Recalled from Triage Doc. by RN): PATIENT C/O FEVER, DRY COUGH, SORE THROAT, DIFFICULTY SWALLOWING, SINUS DRAINAGE, AND EAR ACHE SINCE THURSDAY. HER SON RECENTLY TESTED POSITIVE FOR STREP HEENT Symptoms (Recalled from RN notes): Yes Resp Symptoms (Recalled from RN notes): Yes Skin Symptoms (Recalled from RN notes): No MS Symptoms (Recalled from RN notes): No Functional Status (Recalled from RN notes): WNL - History of Present Illness Provider Complaint: 34 yr old female presents for sore throat, coughing up yellow sputum, nasal congestion, pain with swallowing, and ear feeling full. son was tested poss for strep on - Related Data Home Medications Medication Instructions Recorded Confirmed Bisoprolol Fumarate [Bisoprolol 5 mg PO DAILY 09/18/18 06/24/20 5mg Tablet] citalopram 10 mg tablet 10 mg PO DAILY 01/20/19 06/24/20 Previous Rx's Medication Instructions Recorded Azithromycin [Zithromax 250mg 250 mg PO DIRECTED #6 tab 06/24/20 tab] Fluticasone Propionate [Flonase 1 spr NS DAILY 7 Days #1 bottle 06/24/20 50mcg nasal spray 16gm]
[2020-06-24 15:42] VITALS: BP 135/91; PULSE 92; RESP 20; TEMP 36.7; O2SAT 99
[2020-06-26 14:20] LABS: Covid-19 Nasal PCR Sendout Lex Not Detected
== END 2020-06-24 15:46 | disposition home health service (06) ==
PROVIDERS: Emergency Provider Nurse Practitioner Family; PCP Nurse Practitioner Family
DX: J01.00 Acute maxillary sinusitis, unspecified (principal); Z20.818 Contact with and (suspected) exposure to other bacterial communicable diseases; I10 Essential (primary) hypertension; Z88.0 Allergy status to penicillin; Z88.5 Allergy status to narcotic agent
CPT/HCPCS: 87880; 99202; U0004

== ENCOUNTER → 2020-09-13 15:48 | Outpatient (CLI) | payer OTHER, SELFPAY ==
--- NOTE | 2020-09-13 15:58 | MR_ITS ---
PROCEDURE: MR HEAD/BRAIN WO CON CLINICAL INDICATION: RECURRENT HEADACHE, BLURRED VISION PSEUDO SEIZURE, DIFFICULTY SWALLOWING COMPARISON: MR [facility] MRI-BRAIN W/WO from 01/15/[address] head/brain wo con from 09/18/2018 TECHNIQUE: Routine multiplanar multi echo sequences are performed without gadolinium enhancement. FINDINGS: No midline shift, mass effect, intracranial hemorrhage, or hydrocephalus. No evidence of acute infarction The cerebellopontine angles, cerebellum, and brainstem are unremarkable. There is normal kearney-white matter differentiation with no abnormal white matter signal intensity evident. The pituitary, optic chiasm, corpus callosum, and craniocervical junction have an unremarkable appearance. No mastoid effusion or sinus air-fluid level. There is an 11 mm area decreased T1 and T2 signal within the left subcutaneous tissues of the vertex of the scalp and may represent a complex sebaceous cyst.. IMPRESSION: No acute intracranial findings. Dictated by: Abelardo Douglas MD 09/14/2020 17:27 Abelardo Douglas MD in [place] 09/14/2020 17:27
== END ==
PROVIDERS: PCP Nurse Practitioner Family; Visit Provider Nurse Practitioner Family
DX: R51.9 Headache, unspecified (principal); H53.8 Other visual disturbances
CPT/HCPCS: 70551

== ENCOUNTER → 2020-10-10 13:51 | Outpatient (CLI) | payer OTHER, SELFPAY | PROVIDERS: PCP Nurse Practitioner Family; Visit Provider Nurse Practitioner Family | DX: G47.33 Obstructive sleep apnea (adult) (pediatric) (principal); R40.0 Somnolence; R06.83 Snoring | CPT/HCPCS: 95806 ==

== ENCOUNTER 2021-09-08 20:24 | Emergency (ER) | payer OTHER, SELFPAY ==
[2021-09-08 20:25] VITALS: BMI 34.3
--- NOTE | 2021-09-08 20:25 | ECG_ITS ---
APPROVED REPORT Exam: Resting ECG HR:81 bpm ECG Measurements Heart Rate 81 AXES FL 114 P 48 QRSd 88 QRS 30 QT 382 T 28 QTc 443 Conclusion Normal sinus rhythm Normal ECG Electronically signed by : Gianni Hensley MD 09/09/2021 17:57:54
--- NOTE | 2021-09-08 20:28 | XR_ITS ---
PROCEDURE INFORMATION: Exam: XR Chest Exam date and time: 09/08/2021 8:28 PM Age: 36 years old Clinical indication: Pain; Chest pressure; Additional info: Chest pain TECHNIQUE: Imaging protocol: XR of the chest. Views: 2 views. COMPARISON: CR KUB XR KUB 01/14/2019 10:54 AM FINDINGS: Lungs: Unremarkable. No consolidation. Pleural spaces: Unremarkable. No pleural effusion. No pneumothorax. Heart/Mediastinum: Unremarkable. No cardiomegaly. Bones/joints: Unremarkable. IMPRESSION: No acute findings.
[2021-09-08 20:40] VITALS: BP 170/102; PULSE 91; RESP 18; TEMP 36.7; O2SAT 98; BMI 35.2
[2021-09-08 20:40] LABS: Basophils # 0.1 K/mm3 (0-0.2); Basophils % 0.8 % (0.1-2.0); Eosinophils # 0.1 K/mm3 (0.0-0.4); Eosinophils % 1.1 % (0.1-12.0); Hematocrit 38.6 % (37.0-47.0); Hemoglobin 12.5 g/dL (12.2-16.2); Lymphocytes # 3.4 K/mm3 (0.7-4.5); Lymphocytes % 38.7 % (10-50); Mean Corpuscular HGB Conc 32.3 g/dL (31.8-35.4); Mean Corpuscular Hemoglobin 26.1 pg (27.0-31.2); Mean Corpuscular Volume 80.6 fl (81-99); Mean Platelet Volume 8.7 fl (7.4-10.4); Monocytes # 0.4 K/mm3 (0.1-1.0); Monocytes % 4.5 % (1.7-9.3); Neutrophils # 4.9 K/mm3 (1.8-7.8); Neutrophils % 54.9 % (37.0-80.0); Platelet Count 394 K/mm3 (142-424); Red Blood Count 4.78 M/mm3 (4.20-5.40); Red Cell Distribution Width 17.3 % (11.5-17.5); White Blood Count 8.9 K/mm3 (4.8-10.8)
--- NOTE | 2021-09-08 20:40 | PC.NURSE ---
Pt refusing nitro at this time.
[2021-09-08 20:47] LABS: Alanine Aminotransferase 14 U/L (12-78); Albumin Level 4.1 g/dl (3.5-5.0); Alkaline Phosphatase 84 U/L (38-126); Anion Gap 7.8 mEq/L (5-15); Aspartate Amino Transferase 21 U/L (14-36); Bilirubin,Direct 0.3 mg/dl (0.0-0.4); Bilirubin,Total 0.3 mg/dl (0.2-1.3); Blood Urea Nitrogen 11 mg/dl (7-17); Calcium 9.5 mg/dl (8.4-10.2); Carbon Dioxide 28 mmol/L (22.0-30.0); Chloride 104 mmol/L (98-107); Creatinine Clearance Estimated 189 mL/min (50-200); Estimated Glomerular Filt Rate 114 ml/min (>60); GFR (African American) 138 ML/MIN (>60); Glucose 93 mg/dl (74-100); Magnesium 1.8 mg/dl (1.6-2.3); Potassium 3.8 mmoL/L (3.5-5.1); Sodium 136 mmol/L (136-145); Total Protein,Serum 7.8 g/dl (6.3-8.2)
[2021-09-08 20:48] VITALS: BP 180/108; PULSE 85; RESP 18; O2SAT 97
--- NOTE | 2021-09-08 20:55 | PC.NURSE ---
Nitro was ordered for patient, patient refused stating that she did not believe that her issues were related to a heart attack.
[2021-09-08 21:00] VITALS: BP 167/105; PULSE 81; RESP 15; O2SAT 98
[2021-09-08 21:01] LABS: HCG Qualitative, Serum Negative (Negative)
[2021-09-08 21:02] LABS: Troponin I < 0.01 ng/ml (0.00-0.034)
[2021-09-08 21:05] LABS: Erythrocyte Sedimentation Rate 28 mm/hr (0-20)
[2021-09-08 21:06] LABS: Procalcitonin 0.048 ng/mL (0.0-2.0)
[2021-09-08 21:30] VITALS: BP 167/110; PULSE 82; RESP 21; O2SAT 98
--- NOTE | 2021-09-08 21:47 | HMH.EDCP ---
ED Disposition Clinical Impression: Atypical chest pain Disposition: Home, Self-Care Condition on Discharge: Good Instructions: DI for Atypical Chest Pain Additional Instructions: call pcp for follow up Prescriptions: Bisoprolol Fumarate [Bisoprolol 5mg Tablet] 5 mg PO DAILY #30 tab Transmission Status: Pending to [facility] Referrals: Nitza Golden APRN [Primary Care Provider] - - Critical Care Critical Care Time: No Attestation: On 09/08/21, the high probability of a clinically significant, sudden or life threatening deterioration of the following system(s) required my full and direct attention, intervention and personal management. The time I documented below is in addition to time spent performing reported procedures but includes the following listed in this critical care notation. Medical Decision Making - Medical Records Medical records reviewed: Yes: I reviewed the patient's medical records. - Cj Inquiry Pt receiving controlled substance: No Vital Signs: 09/08/21 20:40 09/08/21 20:48 09/08/21 21:00 Temperature 98.1 F Temperature Source Oral Pulse Rate 85 81 Pulse Rate [Apical] 91 H Respiratory Rate 18 18 15 Blood Pressure 180/108 H 167/105 H Blood Pressure [Right Arm] 170/102 H Blood Pressure Mean [Right Arm] 124 Blood Pressure Source [Right Arm] Automatic Cuff Blood Pressure Position [Right Arm] Sitting 02 Sat by Pulse Oximetry 98 97 98 Oxygen Delivery Method Room Air Room Air Room Air 09/08/21 21:30 Temperature Temperature Source Pulse Rate 82 Pulse Rate [Apical] Respiratory Rate 21 Blood Pressure 167/110 H Blood Pressure [Right Arm] Blood Pressure Mean [Right Arm] Blood Pressure Source [Right Arm] Blood Pressure Position [Right Arm] 02 Sat by Pulse Oximetry 98 Oxygen Delivery Method Room Air - Lab Data Lab results reviewed: Yes: I reviewed the patient's lab results. Lab Results 09/08/21 20:30: WBC 8.9, RBC 4.78, Hgb 12.5, Hct 38.6, MCV 80.6 L, MCH 26.1 L, MCHC 32.3, RDW 17.3, Plt Count 394, MPV 8.7, Neut % (Auto) 54.9, Lymph % (Auto) 38.7, [place] % (Auto) 4.5, Eos % (Auto) 1.1, Baso % (Auto) 0.8, Neut # (Auto) 4.9, Lymph # (Auto) 3.4, [place] # (Auto) 0.4, Eos # (Auto) 0.1, Baso # (Auto) 0.1, ESR 28 H 09/08/21 20:30: Sodium 136, Potassium 3.8, Chloride 104, Carbon Dioxide 28, Anion Gap 7.8, BUN 11, Creatinine 0.60, Estimated Creat Clear 189, Estimated GFR 114, Est GFR ( Amer) 138, Glucose 93, Calcium 9.5, Magnesium 1.8, Total Bilirubin 0.3, Direct Bilirubin 0.3, Conjugated Bilirubin 0.0, Indirect Bilirubin 0.0, Unconjugated Bilirubin 0.0, AST 21, ALT 14, Alkaline Phosphatase 84, Troponin I < 0.01, C-Reactive Protein 13.0 H, Total Protein 7.8, Albumin 4.1, Procalcitonin 0.048 09/08/21 20:30: Serum HCG, Qual Negative Result diagrams: 09/08/21 20:30 09/08/21 20:30 Orders (Tests/Meds): ED MEDICATIONS Generic Name Dose Route Start Last Admin Trade Name Freq PRN Reason Stop Dose Admin Sodium Chloride 1,000 mls @ 999 mls/hr 09/08/21 20:30 09/08/21 20:32 Sod Chlor 0.9% 1000ml Bag IV 09/08/21 21:30 999 mls/hr .Q1H1M INEZ Administration Lisinopril 10 mg 09/09/21 09:00 Lisinopril 10mg Tablet PO 10/09/21 08:59 DAILY INEZ Nitroglycerin 0.4 mg 09/08/21 20:35 Nitroglycerin 0.4mg Sl Tablet SL 10/08/21 20:34 Q5MINP PRN Chest Pain Discontinued Medications Generic Name Dose Route Start Last Admin Trade Name Freq PRN Reason Stop Dose Admin Aspirin 324 mg 09/08/21 20:35 09/08/21 20:39 Aspirin 81mg Chewable Tablet PO 09/08/21 20:36 324 mg ONCE ONE Administration ORDERS Category Date Time Status XR chest 2V Stat Exams 09/08/21 20:28 Taken Troponin I Q3H Lab 09/08/21 23:30 Ordered Troponin I Q3H Lab 09/09/21 02:30 Ordered - Radiology Data #1 Image(s): Chest Image Reviewed: Yes I reviewed the patient's radiology image Preliminary Findings: Normal/NAD - ECG Data
[2021-09-08 22:01] VITALS: BP 172/103; PULSE 82; RESP 16; O2SAT 98
[2021-09-08 22:13] VITALS: BP 170/100; PULSE 73; RESP 16; TEMP 36.9; O2SAT 99
== END 2021-09-08 22:20 | disposition home or self-care (01) ==
PROVIDERS: Emergency Provider Emergency Medicine; PCP Nurse Practitioner Family
DX: R07.89 Other chest pain (principal); R42 Dizziness and giddiness; I10 Essential (primary) hypertension; Z88.0 Allergy status to penicillin; Z88.5 Allergy status to narcotic agent
CPT/HCPCS: 71046; 80048; 80076; 83735; 84145; 84484; 84703; 85025; 85651; 86140; 93005; 96365; 99283

== ENCOUNTER 2021-09-30 12:15 | Emergency (ER) | payer OTHER, SELFPAY ==
[2021-09-30 12:40] VITALS: BP 136/96; PULSE 77; RESP 19; TEMP 37.1; O2SAT 98; BMI 31.3
--- NOTE | 2021-09-30 13:31 | HMH.EDUTC ---
[facility] [place] Clinical Impression: Sinusitis Qualifiers: Sinusitis location: unspecified location Chronicity: unspecified Qualified Code(s): J32.9 - Chronic sinusitis, unspecified Disposition: Home, Self-Care Condition on Discharge: Good Instructions: Sinusitis Additional Instructions: *Monitor Temp, Over the counter Motrin or Tylenol as directed/as needed Tylenol every 4 hours and Motrin every 6 hours (as long as your family doctor has told you that you can take it) for fever or pain. and straight to ER if unable to lower temp less than 101.0 after medication given *Warm salt water gargles may help to soothe the throat *Throat Lozenges *Warm fluids like tea with honey may help to soothe the throat *Sleep elevated *Humidifier/Vaporizer *Flonase 2 sprays in each nostril daily but be aware that it may take 2-3 days before you notice improvement Take medication as prescribed Return if needed Follow up IMMEDIATELY for new or worsening symptoms or no Noticeable improvement over the next 48-72 hours. 911 for difficulty breathing or swallowing Prescriptions: Fluticasone Propionate [Flonase 50mcg nasal spray 16gm] 1 spr NS DAILY #1 each Transmission Status: Pending to [facility] methylPREDNISolone [Medrol 4mg tab] 4 mg PO DIRECTED #21 tab Transmission Status: Pending to [facility] Azithromycin [Z-Dl 250mg Tab] 250 mg PO DIRECTED #6 tab Transmission Status: Pending to [facility] Referrals: Nitza Golden APRN [Primary Care Provider] - As needed Forms: Work/School Release Time of Disposition: 13:42 Medical Decision Making - Jc Inquiry Pt receiving controlled substance: No Cj was queried for this patient: No Vital Signs: 09/30/21 12:40 Temperature 98.8 F Temperature Source Oral Pulse Rate [Right Brachial] 77 Respiratory Rate 19 Blood Pressure [Right Arm] 136/96 H Blood Pressure Mean [Right Arm] 109 Blood Pressure Source [Right Arm] Automatic Cuff Blood Pressure Position [Right Arm] Sitting 02 Sat by Pulse Oximetry 98 Oxygen Delivery Method Room Air Medical Decision Narrative: Patient states that she has taken azithromyicin and Medrol in the past without complications or reactions [facility] [place] HPI - General Stated complaint: head congestion Time Seen by Provider: 09/30/21 13:32 Mode of Arrival: Ambulatory Source of Information: Patient Limitations: No Limitations Description of Symptoms (Recalled from Triage Doc. by RN): PATIENT C/O HEAD/NASAL CONGESTION AND COUGH X 1 WEEK HEENT Symptoms (Recalled from RN notes): Yes Resp Symptoms (Recalled from RN notes): Yes Skin Symptoms (Recalled from RN notes): No MS Symptoms (Recalled from RN notes): No Functional Status (Recalled from RN notes): WNL - History of Present Illness Provider Complaint: Patient states that she has been having sinus pain and pressure along with cough that has continued to get worse over the last week States that today she felt like it was getting worse so she came in to get checked out - Related Data Home Medications Medication Instructions Recorded Confirmed Bisoprolol Fumarate [Bisoprolol 5 mg PO DAILY 09/18/18 09/08/21 5mg Tablet] Escitalopram Oxalate [Lexapro] 10 mg PO DAILY 09/08/21 09/08/21 Previous Rx's Medication Instructions Recorded Bisoprolol Fumarate [Bisoprolol 5 mg PO DAILY #30 tab 09/08/21 5mg Tablet] Azithromycin [Z-Dl 250mg Tab] 250 mg PO DIRECTED #6 tab 09/30/21 Fluticasone Propionate [Flonase 1 spr NS DAILY #1 each 09/30/21 50mcg nasal spray 16gm] methylPREDNISolone [Medrol 4mg 4 mg PO DIRECTED #21 tab 09/30/21 tab] Allergies Allergy/AdvReac Type Severity Reaction Status Date / Time buspirone [From BuSpar] Allergy Unknown UNKNOWN Verified 06/12/20 16:36 morphine [MORPHINE] Allergy Unknown Hives Verified 06/12/20 16:36 Penicillins [PENICILLINS] Allergy Unknown Hives Verified 06/12/20 16:36 coconut Allergy Hives Verified 06/12
[2021-09-30 13:43] VITALS: BP 136/96; PULSE 77; RESP 19; TEMP 37.1; O2SAT 98
== END 2021-09-30 13:51 | disposition home or self-care (01) ==
PROVIDERS: Emergency Provider Nurse Practitioner; PCP Nurse Practitioner Family
DX: J32.9 Chronic sinusitis, unspecified (principal); I10 Essential (primary) hypertension
CPT/HCPCS: 99202; G0463

== ENCOUNTER → 2021-10-07 12:09 | Outpatient (CLI) | payer OTHER, SELFPAY | PROVIDERS: PCP Nurse Practitioner Family; Visit Provider Nurse Practitioner | DX: Z20.822 Contact with and (suspected) exposure to COVID-19 (principal) | CPT/HCPCS: C9803; U0003; U0005 ==

== ENCOUNTER 2021-12-22 09:59 | Emergency (ER) | payer BC, OTHER, SELFPAY ==
[2021-12-22 10:14] VITALS: BP 119/77; PULSE 79; RESP 16; TEMP 36.8; O2SAT 98; BMI 35.2
[2021-12-22 10:52] VITALS: BP 119/77; PULSE 79; RESP 16; TEMP 36.8
--- NOTE | 2021-12-22 10:52 | HMH.EDUTC ---
[facility] [place] Disposition Clinical Impression: Viral syndrome, Exposure to COVID-19 virus Sinusitis Qualifiers: Sinusitis location: unspecified location Chronicity: acute Recurrence: non-recurrent Qualified Code(s): J01.90 - Acute sinusitis, unspecified Disposition: Home, Self-Care Condition on Discharge: Good Instructions: DI for Sinusitis, Preventing the Spread of Coronavirus Discharge Instructions, DI for COVID-19 (Suspected or Confirmed ) Additional Instructions: Drink plenty of fluids. Take tylenol or ibuprofen for pain or fever. Take the medications as directed. Follow up with your regular doctor. GO TO THE ER FOR ANY WORSENING SYMPTOMS Quarantine until you know the results of your covid-19 test. Notify your school or workplace of your results and follow their instructions regarding return to work/school. Prescriptions: Benzonatate [Benzonatate 100mg cap] 100 mg PO TIDP PRN #30 cap PRN Reason: Cough Transmission Status: Pending to [facility] methylPREDNISolone [Medrol] 4 mg PO DIRECTED 6 Days #21 packet Transmission Status: Pending to [facility] Azithromycin [Z-Dl 250mg Tab*] 250 mg PO UD DOSE PK #6 tab Transmission Status: Pending to [facility] Referrals: Nitza Golden APRN [Primary Care Provider] - Forms: Work/School Release Time of Disposition: 11:14 Medical Decision Making - Medical Records Medical records reviewed: No: I reviewed the patient's medical records. - Cj Inquiry Pt receiving controlled substance: No Vital Signs: 12/22/21 10:14 12/22/21 10:52 Temperature 98.2 F 98.2 F Temperature Source Oral Pulse Rate 79 Pulse Rate [Left] 79 Respiratory Rate 16 16 Blood Pressure 119/77 Blood Pressure [Right Arm] 119/77 Blood Pressure Mean [Right Arm] 91 02 Sat by Pulse Oximetry 98 - Lab Data Lab results reviewed: Yes: I reviewed the patient's lab results. Orders (Tests/Meds): ORDERS Category Date Time Status Covid-19 Nasal PCR ([facility]) Routine Lab 12/22/21 10:18 Received [facility] [place] HPI - General Stated complaint: cough, runny nose, dizziness Time Seen by Provider: 12/22/21 10:52 Mode of Arrival: Ambulatory Source of Information: Patient Limitations: No Limitations Description of Symptoms (Recalled from Triage Doc. by RN): pt c/o cough, congestion, dizziness and nasal drainage. HEENT Symptoms (Recalled from RN notes): Yes (nasal drainage/congestion) Resp Symptoms (Recalled from RN notes): Yes (cough) Skin Symptoms (Recalled from RN notes): No MS Symptoms (Recalled from RN notes): No Functional Status (Recalled from RN notes): wnl - History of Present Illness Provider Complaint: She states that for the past 4 days she has had sinus congestion, sore throat, nasal drainage and she has felt bad. She was exposed to covid-19 last week. - Related Data Home Medications Medication Instructions Recorded Confirmed Bisoprolol Fumarate [Bisoprolol 5 mg PO DAILY 09/18/18 09/08/21 5mg Tablet] Escitalopram Oxalate [Lexapro] 10 mg PO DAILY 09/08/21 09/08/21 Previous Rx's Medication Instructions Recorded Bisoprolol Fumarate [Bisoprolol 5 mg PO DAILY #30 tab 09/08/21 5mg Tablet] Azithromycin [Z-Dl 250mg Tab] 250 mg PO DIRECTED #6 tab 09/30/21 Fluticasone Propionate [Flonase 1 spr NS DAILY #1 each 09/30/21 50mcg nasal spray 16gm] methylPREDNISolone [Medrol 4mg 4 mg PO DIRECTED #21 tab 09/30/21 tab] Azithromycin [Z-Dl 250mg Tab*] 250 mg PO UD DOSE PK #6 tab 12/22/21 Benzonatate [Benzonatate 100mg 100 mg PO TIDP PRN #30 cap 12/22/21 cap] methylPREDNISolone [Medrol] 4 mg PO DIRECTED 6 Days #21 12/22/21 packet Allergies Allergy/AdvReac Type Severity Reaction Status Date / Time buspirone [From BuSpar] Allergy Unknown UNKNOWN Verified 06/12/20 16:36 morphine [MORPHINE] Allergy Unknown Hives Verified 06/12/20 16:36 Penicillins [PENICILLINS] Allergy Unknown Hives Verified 06/12/20 16:
== END 2021-12-22 11:21 | disposition home or self-care (01) ==
PROVIDERS: Emergency Provider Nurse Practitioner Family; PCP Nurse Practitioner Family
DX: U07.1 COVID-19 (principal); R42 Dizziness and giddiness; I10 Essential (primary) hypertension; Z88.0 Allergy status to penicillin
CPT/HCPCS: 99202; C9803; G0463; U0003; U0005

== ENCOUNTER 2022-02-06 13:11 | Emergency (ER) | payer BC, OTHER, SELFPAY ==
--- NOTE | 2022-02-06 13:36 | XR_ITS ---
FINAL REPORT CLINICAL HISTORY: cough, congestion COMPARISON: September 08, 2021 FINDINGS: Two views of the chest were obtained. The heart size and pulmonary vascularity are within normal limits. The mediastinum is normal. No acute pulmonary abnormality is identified. There is no pneumothorax. The bony thorax is intact. IMPRESSION: No active cardiopulmonary disease. Reviewed, Interpreted and Dictated by Dontrell Redmond III, MD Transcribed by Sweta Hernandez Authenticated by Dontrell Redmond III, MD on 02/06/2022 02:33:09 PM [facility]
[2022-02-06 13:40] VITALS: BP 145/92; PULSE 100; RESP 18; TEMP 37.1; O2SAT 96; BMI 34.3
[2022-02-06 14:28] LABS: UTC Influenza A Antigen Positive (Negative); UTC Influenza B Antigen Negative (Negative)
[2022-02-06 14:29] LABS: UTC Strep Screen (Rapid) Negative (Negative)
--- NOTE | 2022-02-06 14:35 | HMH.EDUTC ---
[facility] [place] Disposition Clinical Impression: Influenza Disposition: Home, Self-Care Condition on Discharge: Good Instructions: How to Avoid a Cold or Flu, Influenza Additional Instructions: ? Start Tamiflu today if you are going to take it. Discussed risk and possible benefits. ? Lots of rest ? Increase Fluids water, Gatorade, powerade, pedialyte,if infant/toddler/child ? Alternate Tylenol and / or ibuprofen as discussed for fever, aches, chills Follow up IMMEDIATELY with your family doctor for new or worsening Symptoms OR no noticeable improvement over the next 48-72 hours, 911 for difficulty or breathing ? You or your child area contagious until no fever, aches, chills for 24 hours with medication for symptoms ? Help Prevent the spread of influenza: ? Wash your hands often. Use soap and water. Wash your hands after you use the bathroom, change a child's diapers, or sneeze. Wash your hands before you prepare or eat food. Use gel hand cleanser that has 60% alcohol, when soap and water are not available. Do not touch your eyes, nose, or mouth unless you have washed your hands first. ? Cover your mouth when you sneeze or cough. Cough into a tissue or the bend of your arm. If you use a tissue, throw it away immediately and wash your hands. ? Clean shared items with a germ-killing poultry cleaner. Clean table surfaces, doorknobs, and light switches. Do not share towels, silverware, and dishes with people who are sick. Wash bed sheets, towels, silverware, and dishes with soap and water. ? Wear a mask over your mouth and nose if you are sick. The face mask may help protect others from becoming infected with the flu. Wear the mask when in common areas of your home or if you seek care with a healthcare provider. ? Stay away from others if you are sick. Stay at home until 24 hours after your fever and symptoms are gone. Prescriptions: guaiFENesin [Mucinex 600mg tablet] 600 mg PO Q12H PRN #20 tab PRN Reason: Congestion Transmission Status: Pending to [facility] Oseltamivir Phosphate [Tamiflu 75mg Capsule] 75 mg PO BID #10 cap Transmission Status: Pending to [facility] Referrals: Nitza Golden APRN [Primary Care Provider] - As needed Time of Disposition: 14:46 Medical Decision Making - Cj Inquiry Pt receiving controlled substance: No Cj was queried for this patient: No Vital Signs: 02/06/22 13:40 Temperature 98.8 F Temperature Source Oral Pulse Rate [Right Brachial] 100 H Respiratory Rate 18 Blood Pressure [Right Arm] 145/92 H Blood Pressure Mean [Right Arm] 109 Blood Pressure Source [Right Arm] Automatic Cuff Blood Pressure Position [Right Arm] Sitting 02 Sat by Pulse Oximetry 96 Oxygen Delivery Method Room Air - Lab Data Lab results reviewed: Yes: I reviewed the patient's lab results. Lab Results 02/06/22 14:14: Strep Scn Rapid Clinic Negative 02/06/22 14:14: Influenza Type A Ag Positive A, Influenza Type B Ag Negative Orders (Tests/Meds): ORDERS Category Date Time Status Strep Screen Confirmation Stat Micro 02/06/22 14:14 Received - Radiology Data #1 Image(s): Chest Image Reviewed: Yes I have reviewed radiologist's interpretation IMPRESSION: No active cardiopulmonary disease [facility] [place] HPI - General Stated complaint: congestion Time Seen by Provider: 02/06/22 14:00 Mode of Arrival: Ambulatory Source of Information: Patient Limitations: No Limitations Description of Symptoms (Recalled from Triage Doc. by RN): cough, chest discomfort, cold sweats HEENT Symptoms (Recalled from RN notes): No Resp Symptoms (Recalled from RN notes): Yes Skin Symptoms (Recalled from RN notes): No MS Symptoms (Recalled from RN notes): No Functional Status (Recalled from RN notes): wnl - History of Present Illness Provider Complaint: Patient states that she has been having bodyaches, chills, cough, chest congestion and over all not feeling well States that today she was feeling achy all over an
[2022-02-06 14:55] VITALS: BP 145/92; PULSE 100; RESP 18; TEMP 37.1; O2SAT 96
== END 2022-02-06 14:56 | disposition home or self-care (01) ==
PROVIDERS: Emergency Provider Nurse Practitioner; PCP Nurse Practitioner Family
DX: J10.1 Influenza due to other identified influenza virus with other respiratory manifestations (principal); I10 Essential (primary) hypertension; Z88.0 Allergy status to penicillin; Z88.5 Allergy status to narcotic agent
CPT/HCPCS: 71046; 87804; 87880; 99213; G0463

== ENCOUNTER → 2023-03-31 13:18 | Outpatient (CLI) | payer OTHER, SELFPAY | PROVIDERS: PCP Nurse Practitioner Family; Visit Provider Internal Medicine | DX: G47.33 Obstructive sleep apnea (adult) (pediatric) (principal); R06.83 Snoring | CPT/HCPCS: G0399 ==

== ENCOUNTER → 2023-06-24 09:57 | Outpatient (CLI) | payer OTHER, SELFPAY ==
[2023-06-24 10:40] LABS: Basophils % 0.4 % (0.1-2.0); Eosinophils # 0.1 K/mm3 (0.0-0.4); Eosinophils % 1.2 % (0.1-12.0); Hematocrit 38.1 % (37.0-47.0); Hemoglobin 12.3 g/dL (12.2-16.2); Lymphocytes # 2.1 K/mm3 (0.7-4.5); Lymphocytes % 30.6 % (10-50); Mean Corpuscular HGB Conc 32.3 g/dL (31.8-35.4); Mean Corpuscular Hemoglobin 24.9 pg (27.0-31.2); Mean Corpuscular Volume 76.9 fl (81-99); Mean Platelet Volume 8.4 fl (7.4-10.4); Monocytes # 0.3 K/mm3 (0.1-1.0); Monocytes % 4.9 % (1.7-9.3); Neutrophils # 4.3 K/mm3 (1.8-7.8); Neutrophils % 62.9 % (37.0-80.0); Platelet Count 349 K/mm3 (142-424); Red Blood Count 4.95 M/mm3 (4.20-5.40); Red Cell Distribution Width 16.2 % (11.5-17.5); White Blood Count 6.8 K/mm3 (4.8-10.8)
[2023-06-24 12:01] LABS: Iron 33 ug/dL (37-170)
[2023-06-24 12:10] LABS: Total Iron Binding Capacity 452 ug/dL (265-497)
[2023-06-24 12:37] LABS: Ferritin 5.67 ng/ml (6.24-137)
== END ==
PROVIDERS: PCP Nurse Practitioner Family; Visit Provider Nurse Practitioner Family
DX: E83.10 Disorder of iron metabolism, unspecified (principal)
CPT/HCPCS: 36415; 82728; 83540; 83550; 85025

== ENCOUNTER → 2023-07-01 10:25 | Outpatient (CLI) | payer OTHER, SELFPAY ==
[2023-07-01 14:01] LABS: Vitamin B12 248 pg/mL (239-931)
== END ==
PROVIDERS: PCP Nurse Practitioner Family; Visit Provider Nurse Practitioner Family
DX: E61.1 Iron deficiency (principal); R71.8 Other abnormality of red blood cells
CPT/HCPCS: 36415; 82607

== ENCOUNTER 2023-12-22 19:50 | Emergency (ER) | payer SELFPAY ==
[2023-12-22 19:53] VITALS: BP 140/85; PULSE 106; RESP 18; TEMP 37.7; O2SAT 96; BMI 36.0
--- NOTE | 2023-12-22 20:23 | ED_ITS ---
I was consulted by the KAIDEN, and we discussed the complexity of the problems being addressed. I approved the treatment and management plan for this patient's care in the emergency department, thus performing a substantive portion of the medical decision making. Discharge Plan Disposition Patient Disposition: Home, Self-Care Condition: Good Prescriptions Prescriptions: New cefdinir 300 mg capsule 300 mg PO BID 7 Days Qty: 14 0RF No Action escitalopram oxalate 20 mg tablet 20 mg PO DAILY Patient Comments: TAKE 1 TABLET BY MOUTH ONCE DAILY bisoprolol-hydrochlorothiazide 10-6.25 mg tablet 1 tab PO DAILY Referrals Follow up/Referrals: Shayy Haro APRN [Primary Care Provider] - See instructions Clinical Impressions Clinical Impression: Strep pharyngitis Discharge ED Provider: Margaret [facility] HPI General Chief complaint: Upper Respiratory Infection Stated complaint: sore throat,earache,dizziness,fever Time Seen by Provider: 12/22/23 20:02 Mode of Arrival: Ambulatory Source of Information: Patient Limitations: No Limitations Description of Symptoms (Recalled from ER Triage Doc. by RN): Patient reports that she has throat pain and right ear pain that started yesterday. States that daughter recently tested positive for strep. History of Present Illness HPI narrative: Patient presents with sore throat general malaise and symptoms of upper respiratory tract infection. Patient's daughter has been diagnosed and being treated for strep. Related Data Home Medications Medication Instructions Recorded Confirmed bisoprolol 10 1 tab PO DAILY 06/24/23 06/24/23 mg-hydrochlorothiazide 6.25 mg tablet escitalopram oxalate 20 mg tablet 20 mg PO DAILY 06/24/23 06/24/23 Previous Rx's Medication Instructions Recorded cefdinir 300 mg capsule 300 mg PO BID 7 days #14 caps 12/22/23 Allergies Allergy/AdvReac Type Severity Reaction Status Date / Time buspirone [From BuSpar] Allergy Unknown UNKNOWN Verified 06/24/23 09:06 morphine [MORPHINE] Allergy Unknown Hives Verified 06/24/23 09:06 Penicillins [PENICILLINS] Allergy Unknown Hives Verified 06/24/23 09:06 coconut Allergy Hives Verified 06/24/23 09:06 [facility] Disclaimer: The information contained in this section may have been updated after the patient was seen, as this information can be updated by other users. Surgical History History of Social History Smoking Status: Never smoker alcohol intake: never substance use type: denies use current occupational status: other Travel in the last 8 weeks: None household members: spouse housing: house number of children: 3 current occupation: [id number], [employer] current occupational exposures/hazards: No caffeine: No ROS Obtained: Yes Systems reviewed as appropriate & no additional complaints except as documented Physical Exam Narrative Physical exam: Patient is a well-nourished well-developed very pleasant 38-year-old female who otherwise is in no acute distress General General appearance: alert and in no apparent distress Head Head exam: atraumatic, normocephalic and normal inspection Eye Eye exam: Present normal appearance, PERRL and EOMI ENT ENT exam: Present TM's normal bilaterally Expanded ENT Exam Mouth exam: Present normal external inspection and tongue normal Teeth exam: Present normal inspection Throat exam: Present tonsillar erythema, tonsillomegaly and tonsillar exudate Neck Neck exam: Present normal inspection, full ROM, trachea midline and lymphadenopathy; Absent meningismus Chest Chest inspection: Present normal inspection and symmetric chest wall rise; Absent tenderness Respiratory Respiratory exam: Present normal lung sounds bilaterally; Absent respiratory distress Cardiovascular Cardiovascular exam: Present regular rate and normal rhythm; Absent JVD Abdominal Exam Abdominal exam: Present soft and normal bowel sounds; Absent distention, tenderness or guarding Extremities Exam Extremities exam: Present normal inspection, full ROM and normal capillary refill; Absent calf tenderness Back Exam Back exam: Present normal inspection; Absent tenderness Neurological Exam Neurological exam: Present alert and oriented X3 Psychiatric Psychiatric exam: Present normal affect and normal mood Skin Skin exam: Present warm, dry, intact and normal color Lymphatic Lymphatic Findings: no adenopathy Medical Decision Making Cj Inquiry Pt receiving controlled substance: No Vital Signs: 12/22/23 19:53 12/22/23 20:52 Temperature 99.9 F H 98.0 F Temperature Source Oral Oral Pulse Rate 75 Pulse Rate [Left Radial] 106 H Respiratory Rate 18 16 Blood Pressure 140/85 Blood Pressure [Right Arm] 140/85 Blood Pressure Mean [Right Arm] 103 Blood Pressure Source Automatic Cuff Blood Pressure Source [Right Arm] Automatic Cuff Blood Pressure Position Sitting Blood Pressure Position [Right Arm] Sitting 02 Sat by Pulse Oximetry 96 Oxygen Delivery Method Room Air Room Air Lab Data Lab Results 12/22/23 20:00: Group A Strep Rapid Positive A Orders (Tests/Meds): ORDERS Category Date Time Status Strep Scrn Group A (Rapid) Stat Lab 12/22/23 20:00 Completed Medical Decision Narrative: In summary patient is a 38-year-old female who presents to the emergency department for evaluation of upper respiratory tract infection symptoms. Patient is hemodynamically stable upon arrival, afebrile currently. Examination shows erythema tonsillomegaly with exudate and positive cervical lymphadenopathy. Differential diagnosis includes group A strep versus other upper respiratory tract infection versus peritonsillar abscess. Initial workup will be conducted with rapid strep screen and hematologic lab. Initial interventions include NSAIDs. Initial workup reviewed by me which shows a normal white count but a positive group A strep screen. Upon repeat evaluation had improvement of malaise after demonstration of NSAIDs. Given this patient appropriate for discharge home with a prescription for amoxicillin 500 mg p.o. twice daily. Patient to return to PCP or ER if symptoms worsen Critical Care Critical Care Time Critical Care Time: No
[2023-12-22 20:36] LABS: Strep Scrn Group A (Rapid) Positive (Negative)
[2023-12-22 20:52] VITALS: BP 140/85; PULSE 75; RESP 16; TEMP 36.7; O2SAT 98
== END 2023-12-22 20:53 | disposition home or self-care (01) ==
PROVIDERS: Emergency Provider Student in an Organized Health Care Education/Training Program; PCP Nurse Practitioner Family
DX: J02.0 Streptococcal pharyngitis (principal); H92.01 Otalgia, right ear
CPT/HCPCS: 87430; 99283

== ENCOUNTER 2024-02-16 14:09 | Emergency (ER) | payer SELFPAY ==
[2024-02-16 14:15] VITALS: BP 117/54; PULSE 75; RESP 18; TEMP 36.6; O2SAT 97; BMI 36.4
--- NOTE | 2024-02-16 14:29 | EXP.UTC ---
Discharge Plan Disposition Patient Disposition: Home, Self-Care Condition: Good Prescriptions Prescriptions: New benzonatate 100 mg capsule 100 mg PO TID PRN (Reason: cough) Qty: 30 0RF methylprednisolone [Medrol (Dl)] 4 mg tablets,dose pack See Rx Instructions .Route .COMPLEX 6 Days Qty: 21 0RF Rx Instructions: taper pack; No Action bisoprolol-hydrochlorothiazide 10-6.25 mg tablet 1 tab PO DAILY citalopram 20 mg tablet 20 mg PO DAILY Patient Comments: TAKE 1 TABLET BY MOUTH ONCE DAILY Referrals Follow up/Referrals: Shayy Haro APRN [Primary Care Provider] - See instructions Activity Restrictions/Add. Instructions Additional Instructions/Restrictions: Monitor temp. Tylenol every 4 hours as needed and / or ibuprofen every 6 hours as needed ( As long as your primary care physician has told you that it ok to take both. For fever/aches/pains ER if no less than 101 despite Tylenol or Motrin Humidifier/vaporizer or hot steamy shower Mucinex during the day for your cough and cough suppressant only at night. Be sure to drink lots of water. Insurance may not cover a prescriptions for mucinex. Might be cheaper to get 400mg tablets and take 2 tablet in the morning, mid-day and evening with lots of water. *Tessalon Perles will not cause drowsiness but use at bedtime to help stop cough so that you may get some rest. *Start steroid today. Helps with inflammation therefore, cough and wheezing. Follow directions on the package. Reviewed side effects. Patient reports taking them before. Follow up IMMEDIATELY for new or worsening of symptoms OR no noticeable improvement over the next 48-72 hours. 911 immediately for any life threatening symptoms such as chest pain or difficulty breathing Clinical Impressions Clinical Impression: Bronchitis Stand Alone Forms Stand Alone Forms: Work/School Release Instructions Patient Instructions: Acute Bronchitis Discharge ED Provider: Mima Ruggiero [facility] General Stated complaint: chest congestion, cough Mode of Arrival: Ambulatory Source of Information: Patient Limitations: No Limitations Time Seen by Provider: 02/16/24 14:29 Description of Symptoms (Recalled from Triage Doc. by RN): Pt's symptoms are chest congestion, and cough. HEENT Symptoms (Recalled from RN notes): Yes Resp Symptoms (Recalled from RN notes): No Skin Symptoms (Recalled from RN notes): No MS Symptoms (Recalled from RN notes): No Functional Status (Recalled from RN notes): n/a History of Present Illness Provider Complaint: Patient states she has been having cough for about 3 weeks states that she feels like she may have bronchitis States that she isnt coughing anything up has had a little nasal drainage and no SOA but they sent her home from work due to the cough so she came in to get checked Related Data Home Medications Medication Instructions Recorded Confirmed bisoprolol 10 1 tab PO DAILY 06/24/23 02/16/24 mg-hydrochlorothiazide 6.25 mg tablet citalopram 20 mg tablet 20 mg PO DAILY 02/16/24 02/16/24 Previous Rx's Medication Instructions Recorded benzonatate 100 mg capsule 100 mg PO TID PRN cough #30 caps 02/16/24 methylprednisolone 4 mg tablets in See Rx Instructions .Route 02/16/24 a dose pack (Medrol (Dl)) .COMPLEX 6 days #21 tabs Allergies Allergy/AdvReac Type Severity Reaction Status Date / Time buspirone [From BuSpar] Allergy Unknown UNKNOWN Verified 02/16/24 14:24 morphine [MORPHINE] Allergy Unknown Hives Verified 02/16/24 14:24 Penicillins [PENICILLINS] Allergy Unknown Hives Verified 02/16/24 14:24 coconut Allergy Hives Verified 02/16/24 14:24 Worker's Comp Is this a Worker's Comp case?: No [facility] Disclaimer: The information contained in this section may have been updated after the patient was seen, as this information can be updated by other users. Surgical History History of Social History Smoking Status: Never smoker alcohol intake: never substance use type: denies use current occupational status: other Travel in the last 8 weeks: None household members: spouse housing: house number of children: 3 current occupation: [email or web address] long-term, [employer] current occupational exposures/hazards: No caffeine: No ROS Obtained: Yes All systems reviewed & no additional complaints except as documented and Yes Systems reviewed as appropriate & no additional complaints except as documented Constitutional Constitutional: Reports system reviewed and no additional complaints, except as documented and Reports as per HPI ENT Ears, Nose, Mouth, and Throat: Reports system reviewed and no additional complaints, except as documented, Reports as per HPI and Reports nasal congestion Cardiovascular Cardiovascular: Reports system reviewed and no additional complaints, except as documented and Reports as per HPI Respiratory Respiratory: Reports system reviewed and no additional complaints, except as documented, Reports as per HPI, Reports chest congestion and Reports cough Physical Exam General General appearance: alert and in no apparent distress ENT ENT exam: Present mucous membranes moist Expanded ENT Exam Nose exam: Absent sinus tenderness Throat exam: Present normal inspection Respiratory Respiratory exam: Present normal lung sounds bilaterally; Absent respiratory distress or wheezes Cardiovascular Cardiovascular exam: Present regular rate, normal rhythm and normal heart sounds Neurological Exam Neurological exam: Present alert, oriented X3 and normal gait Medical Decision Making Cj Inquiry Pt receiving controlled substance: No Cj was queried for this patient: No Vital Signs: 02/16/24 14:15 Temperature 97.8 F Temperature Source Oral Pulse Rate [Right Radial] 75 Respiratory Rate 18 Blood Pressure [Right Arm] 117/54 L Blood Pressure Mean [Right Arm] 75 Blood Pressure Source [Right Arm] Automatic Cuff Blood Pressure Position [Right Arm] Sitting 02 Sat by Pulse Oximetry 97 Oxygen Delivery Method Room Air Medical Decision Narrative: Patient states that she has taken Medrol in the past for Bronchitis
[2024-02-16 14:39] LABS: UTC Influenza A Antigen Negative (Negative); UTC Influenza B Antigen Negative (Negative)
[2024-02-16 14:43] VITALS: BP 117/54; PULSE 75; RESP 18; TEMP 36.6; O2SAT 97
== END 2024-02-16 14:43 | disposition home or self-care (01) ==
PROVIDERS: Emergency Provider Nurse Practitioner; PCP Nurse Practitioner Family
DX: J20.9 Acute bronchitis, unspecified (principal); R05.9 Cough, unspecified; R09.81 Nasal congestion
CPT/HCPCS: 87804; 99212; 99214; G0463

== ENCOUNTER 2025-04-27 15:12 | Outpatient (CLI) | payer OTHER, SELFPAY ==
[2025-04-28 08:18] LABS: FSH 4.7 mIU/mL (.); LH 13.8 mIU/mL (.)
== END 2025-04-27 23:59 | disposition home or self-care (01) ==
LOC: LAB 15:13
PROVIDERS: PCP Nurse Practitioner Family; Visit Provider Nurse Practitioner Obstetrics & Gynecology
DX: R10.2 Pelvic and perineal pain (principal)
CPT/HCPCS: 82670; 83001; 83002

== ENCOUNTER 2025-05-03 13:06 | Outpatient (CLI) | payer OTHER, SELFPAY ==
--- OUTSIDE RECORDS SUMMARY | 2025-05-03 13:10 | XMS_ITS | Clinical Summary ---
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 Active bisoprolol-hydro CHLOROthiazide (ZIAC) 10-6.25 mg per tablet Take 1 tablet by mouth in the morning. Active Active Problems Problem Noted Date Diagnosed Date HTN (hypertension) 04/23/2023 Mitral valve disorder 04/23/2023 SVT (supraventricular tachycardia) 04/23/2023 Anxiety 04/23/2023 Vitamin deficiency 04/23/2023 Social History Tobacco Use Types Packs/Day Years Used Date Smoking Tobacco: Never Smokeless Tobacco: Never Tobacco Cessation:Counseling Given: Not Answered Alcohol Use Standard Drinks/Week Comments Not Currently 0 (1 standard drink = 0.6 oz pur e alcohol) Interpersonal Safety Answer Date Record ed Family or friends hurt you Not on file 12/11 Family or friends insult you Not on file Family or friends threaten you Not on file 0 12/11/2023 Family or friends scream or curse at you Not on file 12/11/2023 Housing Stability Answer Date Recorded Living situation today Not on file Living situation problems Not on file 2023 Family and Community Support Answer Ronal e Recorded Help with Day to Day Activities Not on file 12/11/2023 Feeling Lonely or Isolated Not on file 12/11 Educational Attainment Answer Date Gus rded Speak language other than Indian at home Not on file 12/11/2023 Want help with school or training Not on file 12/11/2023 Depression Answer Date Recorded PHQ-2 Risk Not on file 12/11/2023 Disabilities Answer Date Recorded Difficulty concentrating Not on file 024 Difficulty doing errands alone Not on file 0 12/11/2023 Substance Use Answer Date Recorded Used prescription meds for non-medical reasons N ot on file 12/11/2023 Used illegal drugs past 12 months Not on file 12/11/2023 Comments Unknown Sex and Gender Information Value Date Recorded Sex Assigned at Not on file Legal Sex Female 6:19 PM CDT Gender Identity Not on file Sexual Orientation Not on file Last Filed Vital Signs Vital Sign Reading Time Taken Comments Blood Pressure 125/80 04/24/2023 2:28 PM EDT Pulse 68 04/24/2023 2:28 PM EDT Temperature - - Respiratory Rate - - Oxygen Saturation - - Inhaled Oxygen Concentration - - Weight 95.3 kg (210 lb) 04/24/2023 2:28 PM EDT Height 162.6 cm (5' 4 ) 04/24/2023 2:28 PM EDT Body Mass Index 36.05 04/24/2023 2:28 PM EDT Plan of Treatment Health Maintenance Due Date Last Done Comments Depression Screening (12+) 1999 HIV Screening 2002 Hepatitis C Screening 2005 Lipid Panel 2007 Pap Smear 2008 DTAP/TDAP/TD VACCINES (3 - Tdap) 01/09/2019 01/09/2009, 02/16/2008 Tobacco Cessation Counseling and Screening (12+) 04/24/2024 04/24/2023 COVID-19 VACCINE (2023- season) 2024 08/14/2021, 02/20/2021 Influenza Vaccine (Season Ended) 2025 Pneumococcal Vaccine: 0-49 Years Aged Out 09/04/2008, 02/16/2008, 12/15/2007, Additional history exists No longer eligible based on patient's age to complete this topic Insurance [facility] CHOICE PLUS Advance Directives For more information, please contact: [phone] Documents on File Type Date Recorded Patient Fingerer Expl anation Advance Directives and Livin g Will 05/25/2023 9:14 AM Care Teams Laborer Petroleum Refinery Relationship Specialty Start Date End Date Shahid Tracey MD [address] [place] [address] PCP - General Family Medicine 04/24/23
--- OUTSIDE RECORDS SUMMARY | 2025-05-03 13:10 | XMS_ITS | Referral Summary ---
Author Organization [employer] Address [address] [place] [address] Care Team Providers Care Welfare Worker Name Role Phone Shahid Tracey MD Primary Care Provider [phone] Allergies Active Allergy Reactions Criticality Noted Date [...] Date Gus rded Speak language other than Palauan at home Not on file 12/11/2023 Want [...] 04/24/2023 2:28 PM EDT Plan of Treatment Not on file Insurance [facility] CHOICE PLUS [place] [id number] Advance Directives For more information, please contact: [phone] Documents on File Type Date Recorded Patient Director Economic Expl anation Advance Directives and Livjaleesa g Will 05/25/2023 9:14 AM Care Teams Welfare Worker Relationship Specialty Start Date End Date Shahid Tracey MD [address] [place] [address] PCP - General Family Medicine 04/24/23
--- NOTE | 2025-05-03 13:30 | US_ITS ---
PROCEDURE: US TRANSVAGINAL CLINICAL INDICATION: TVUS for pelvic pain COMPARISON: CT [id number] CT abdomen pelvis w con from 06/21/2018 FINDINGS: Transvaginal and transabdominal sonographic images of the pelvis were obtained. UTERUS: 8.4cm x 5.4cmx 3.3cm retroflexed and axial with a combined endometrial thickness of 10mm. LEFT OVARY: 1mvc1lpu3.8cm with a volume of 7.4ml. The ovary is only seen transabdominally and appears normal. There are several small peripheral follicles. RIGHT OVARY: 4cmx 7uvk2oh with a volume of 16.7ml. There are several small peripheral follicles. There appears to be a collapsing corpus luteum measuring 1.85 cm. There is a 2nd follicle measuring 1.5 cm x 1.1 cm x 1.2 cm. Both ovaries are seen and appear normal. Doppler flow to both ovaries are seen. There is a small amount of fluid in the cul-de-sac. IMPRESSION: 1. Retroflexed and axial uterus normal in shape and size. The endometrium is the normal at 10 mm. 2. The right ovary is seen and contains a corpus luteum measuring 1.85 cm. There is a 2nd 5 dominant follicle measuring 1.5 cm. 3. It ovaries only seen transabdominally and appears normal. 4. There is a small amount of fluid in the cul-de-sac. Dictated by: Kervin Farias MD 05/03/2025 15:43 Kervin Farias MD in [place] 05/03/2025 15:43
--- NOTE | 2025-05-03 13:43 | US_ITS ---
FINAL REPORT CLINICAL HISTORY: CLAUDICATION,REST PAIN,HTN,HLD FINDINGS: ANKLE-BRACHIAL PRESSURE INDICES Pressure indices are as follows: RIGHT LOWER EXTREMITY: Ankle-brachial pressure index: 1.11 Comments: Normal LEFT LOWER EXTREMITY: Ankle-brachial pressure index: 1.18 Comments: Normal IMPRESSION: No evidence of significant obstructive peripheral vascular disease of the lower extremities Reviewed, Interpreted and Dictated by Pascual Koehler MD Transcribed by Colleen Lopez Authenticated and [facility]
== END 2025-05-03 23:59 | disposition home or self-care (01) ==
LOC: RAD 13:07
PROVIDERS: PCP Nurse Practitioner Family; Visit Provider Nurse Practitioner Obstetrics & Gynecology
DX: R20.8 Other disturbances of skin sensation (principal); I73.9 Peripheral vascular disease, unspecified; I10 Essential (primary) hypertension; E78.5 Hyperlipidemia, unspecified; N83.11 Corpus luteum cyst of right ovary; N85.4 Malposition of uterus
CPT/HCPCS: 76830; 93923

== ENCOUNTER 2025-05-10 14:39 | Outpatient (CLI) | payer OTHER, SELFPAY ==
--- OUTSIDE RECORDS SUMMARY | 2025-05-10 14:42 | XMS_ITS | Clinical Summary ---
Author Organization [employer] Address [address] [place] [address] Care Team Providers Care Supervisor Food Checkers And Cashiers Name Role Phone Shahid Tracey MD Primary Care Provider [phone] Allergies Active Allergy Reactions Criticality Noted Date [...] Date Gus rded Speak language other than Bahamian at home Not on file 12/11/2023 Want [...] patient's age to complete this topic Insurance [facility] CHOICE PLUS Advance Directives For more information, please contact: [phone] Documents on File Type Date Recorded Patient Automotive Drivability Technician Expl anation Advance Directives and Livin g Will 05/25/2023 9:14 AM Care Teams Supervisor Food Checkers And Cashiers Relationship Specialty Start Date End Date Shahid Tracey MD [address] [place] [address] PCP - General Family Medicine 04/24/23
--- OUTSIDE RECORDS SUMMARY | 2025-05-10 14:42 | XMS_ITS | Referral Summary ---
Author Organization [employer] Address [address] [place] [address] Care Team Providers Care Commodities Requirements Analyst Name Role Phone Shahid Tracey MD Primary Care Provider [phone] Allergies Active Allergy Reactions Criticality Noted Date [...] Date Gus rded Speak language other than Emirati at home Not on file 12/11/2023 Want [...] Plan of Treatment Not on file Insurance [facility] CHOICE PLUS [place] [id number] Advance Directives For more information, please contact: [phone] Documents on File Type Date Recorded Patient Physical Education Specialist Expl anation Advance Directives and Livjaleesa g Will 05/25/2023 9:14 AM Care Teams Commodities Requirements Analyst Relationship Specialty Start Date End Date Shahid Tracey MD [address] [place] [address] PCP - General Family Medicine 04/24/23
== END 2025-05-10 23:59 | disposition home or self-care (01) ==
LOC: RT 14:40
PROVIDERS: PCP Nurse Practitioner Family; Visit Provider Nurse Practitioner
DX: I49.1 Atrial premature depolarization (principal); I49.3 Ventricular premature depolarization
CPT/HCPCS: 93270

== ENCOUNTER 2025-05-31 07:30 | Outpatient (CLI) | payer OTHER, SELFPAY ==
--- OUTSIDE RECORDS SUMMARY | 2025-05-24 11:00 | XMS_ITS | Encounter Summary ---
Author Organization [facility] Address [address] [id number] Care Team Providers Care Powder Blender And Pourer Name Role Phone Sae Gold MD Primary Care Provider Reason for Visit * Reason Comments Raynaud's phenomenon * Consultation (Routine) - Closed Specialty Diagnoses / Procedures Referred By Daria t Referred To Contact Rheumatology Diagnoses Raynaud's phenomenon Shayy Haro , GATE MORTISER OPERATOR [address] [place] [address] Phone: tel: fax: Referral ID Status Reason Start Date Expiration Date V isits Requested Visits Authorized [id number] Closed Specialty Services Required 05/15/2025 11/14/2026 1 1 Encounter Details Date Type Department Care Team (Late st Contact Info) Description 05/24/2025 11:00 AM EDT Consult [facility] [address] [place] [address] Brittany November, GATE MORTISER OPERATOR [address] [place] [address] Polyarthralgia (Primary Dx); Myalgia Social History Tobacco Use Types Packs/Day Years Used Date Smoking Tobacco: Never Passive Smoke Exposure: Current Smokeless Tobacco: Never Tobacco Cessation:Counseling Given: Not Answered PHQ-2 Answer Date Recorded Patient Health Questionnaire-2 Score 0 05/24/2025 PHQ-9 Answer Date Recorded Patient Health Questionnaire-9 Score 0 05/24/2025 Comments Unknown Sex and Gender Information Value Date Recorded Sex Assigned at Not on file Legal Sex Female 7:08 PM EDT Gender Identity Not on file Sexual Orientation Not on file documented as of this encounter Last Filed Vital Signs Vital Sign Reading Time Taken Comments Blood Pressure 106/72 05/24/2025 10:59 AM EDT Pulse 67 05/24/2025 10:59 AM EDT Temperature 36.6 C (97.8 F) 05/24/2025 10:59 AM EDT Respiratory Rate - - Oxygen Saturation 96% 05/24/2025 10: 59 AM EDT Inhaled Oxygen Concentration - - Weight 92.4 kg (203 lb 11.3 oz) 025 10:59 AM EDT Height 162.6 cm (5' 4 ) 05/24/2025 10:5 9 AM EDT Body Mass Index 34.97 05/24/2025 10:59 AM EDT documented in this encounter Functional Status * Over the past 2 weeks, how often have you been bothered by any of the following problems? Question Answer Date of Assessment Author Little interest or pleasure in doing things Not at all 05/24/2025 10:57 AM EDT Maryam Denton A Feeling down, depressed, or hopeless Not at all 05/24/2025 10:57 AM EDT Maryam Denton A Patient Health Questionnaire -2 Score 0 05/24/2025 10:57 AM EDT Maryam Denton A * Question Answer Date of Assessment Author Trouble falling or staying asleep, or sleeping too much Not at all 05/24/2025 10:57 AM EDT Maryam Denton A Feeling tired or having selene le energy Not at all 05/24/2025 10:57 AM EDT Maryam Denton A Poor appetite or overeating Not at all 05/24/2025 10 :57 AM EDT Maryam Denton A Feeling bad about yourself - or that you are a failure or have let yourself or your family down Not at all 05/24/2025 10:57 AM EDT Maryam Hayden A Trouble concentrating on thi ngs, such as reading the newspaper or watching television Not at all 05/24/2025 10:57 AM EDT Maryam Denton A Moving or speaking so slowly that other people could have noticed? Or the opposite - being so fidgety or restless that you have been moving around a lot more than usual. Not at all 05/24/2025 10:57 AM EDT Bertin Tempest A Thoughts that you would be better off or hurting yourself in some way Not at all 05/24/2025 10:57 AM EDT Bertin Tempest A Patient Health Questionnaire -9 Score 0 05/24/2025 10:57 AM EDT Bertin Tempest A * If you checked off any problems on this questionnaire so far, Question Answer Date of Assessment Author How difficult have these problems made it for you to do your work, take care of things at home, or get along with other people? Not difficult at all 05/24/2025 10:57 AM EDT Gabriel Dentont A documented as of this encounter Miscellaneous Notes * Progress Notes - Monique Soto APRN - 05/24/2025 11:00 AM EDT Subjective Patient ID: Magali Reyes is a 39 y.o. female with HPI Magali Reyes is a 39 y.o. female with PMH significant for SVT, Anxiety, HTN, Vit D Def, Vit B12def, Myalgia Hx of Eczema , MORIAH, as child, who presents as a new consult evaluation for Raynaud's. Pt was referred by Shayy Haro APRN Referral note and labs reviewed: VIMAL: Normal 04/2025 ECHO normal 05/2023 Outside labs: ESR 52, JAY and RF neg Today: Pt reported Raynaud's symptoms. More cold and cramping in hands than discoloration. She had genetics test 25 and md that showed genes for auto-immune disease. Legs feel heavy in the mornings for a few years. Finger pain, toe and right arm pain cramping . She is uncomfortable sleeping. Denied backpain. Hand swelling tightness feet swell at the end of the day. Rash on face, chest and arm with sun exposure turns purple . It isn't itchy. Some morning stiffness. Has sleep study pending. Hurts to be hugged. Initial Rheumatological ROS positive for? Raynaud's symptoms, rash, dry mouth, eczema as a child, photosensitivity, Rest ROS negative for dry eyes, , oral ulcers, nasal ulcers, alopecia, serositis, psoriasis, , Raynaud's symptoms or digit ulcerations, renal disease or macroscopic hematuria, psychosis or delirium, seizures, IBD, uveitis or episcleritis, blood clots or miscarriages. Review of Systems Constitutional: Positive for fatigue. Negative for chills and fever. HENT: Negative for mouth sores. Eyes: Positive for visual disturbance (blurry vision. over past year). Negative for pain and redness. Respiratory: Positive for cough and shortness of breath. Cardiovascular: Positive for palpitations. Negative for chest pain. Gastrointestinal: Positive for nausea. Negative for diarrhea. Genitourinary: Negative for hematuria. Musculoskeletal: Positive for arthralgias and myalgias. See HPI Skin: Negative for rash. Neurological: Positive for dizziness, weakness (leg), numbness (hands and feet) and headaches. Negative for seizures. Hematological: Bruises/bleeds easily. Psychiatric/Behavioral: Positive for sleep disturbance. Negative for hallucinations. Family History: No FH of autoimmune diseases. Social History: No known exposure to HCV or HIV. No hx IV drug use. No hx of tobacco use. No hx of alcohol abuse. 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 The following portions of the chart were reviewed this encounter and updated as appropriate: Past Medical History[1] Surgical History[2] Social History Socioeconomic History Marital status: Spouse name: Not on file Number of children: Not on file Years of education: Not on file Highest education level: Not on file Occupational History Not on file Tobacco Use Smoking status: Never Passive exposure: Current Smokeless tobacco: Never Substance and Sexual Activity Alcohol use: Not on file Drug use: Not on file Sexual activity: Not on file Other Topics Concern Not on file Social History Narrative Not on file Social Drivers of Health Financial Resource Strain: Not on file Food Insecurity: Not on file Transportation Needs: Not on file Physical Activity: Not on file Stress: Not on file Social Connections: Low Risk (12/11/2023) Received from [employer] ([place], [place], [place], [place]) Family and Community Support Help with Day to Day Activities: Not on file Feeling Lonely or Isolated: Not on file Intimate Partner Violence: Not on file Housing Stability: Not on file Family History[3] Allergies[4] Current Medications[5] Objective Vitals: 05/24/25 1059 BP: 106/72 Pulse: 67 Temp: 36.6 ??C (97.8 ??F) SpO2: 96% Physical Exam Vitals reviewed. Constitutional: General: She is not in acute distress. Appearance: Normal appearance. Eyes: Conjunctiva/sclera: Conjunctivae normal. Pupils: Pupils are equal, round, and reactive to light. Cardiovascular: Rate and Rhythm: Normal rate and regular rhythm. Heart sounds: No murmur heard. Pulmonary: Effort: Pulmonary effort is normal. Breath sounds: Normal breath sounds. Musculoskeletal: Comments: Digits and nails were normal. See homunculus. Joints had a normal ROM and normal alignment. No synovitis. Skin: General: Skin is warm. Findings: No rash. Neurological: General: No focal deficit present. Mental Status: She is alert. Psychiatric: Mood and Affect: Mood normal. There is currently no information documented on the homunculus. Go to the Rheumatology activity and[facility]. Joint Exam 05/24/2025 No joint exam has been documented for this visit No data to display Swollen Joint Count: Swollen: -- 0 Tender Joint Count: Tender: -- 0 Patient global assessment: 05/02 Rapid 3 score: 10/22 CDAI: Assessment/Plan No diagnosis found. Diagnosis Plan 1. Polyarthralgia Diff Dx: RA, OA, SpA, PsA No synovitis Antinuclear Antibody (JAY), HEp-2, IgG Double-Stranded DNA (dsDNA) Antibody, IgG by IFA C3 Complement C4 Complement CBC and Differential ENAI ENAII Protein, Random, Urine with Creatinine Sosa (FAINA) Antibody, IgG Thyroid Peroxidase Antibody Thyroid Stimulating Hormone, Plasma Urinalysis with reflex microscopic (Culture NOT Included) XR Sacroiliac Joints 3+ Views HLA B27 Typing 2. Myalgia Diff Dx: FMS, Myositis, Dermatomyositis 5/5 muscle strength Creatine Kinase (CK), Total Aldolase Myositis Antibody Panel (SO) RTC PRN pending results Today, I personally spent 40 minutes on the encounter. The patient was counseled about diagnostic results, instruction for management, risk factors reduction, prognosis, compliance with visits and treatment, risks and benefits of treatments options. Prior notes (by external physicians) and results were reviewed by me with independent interpretation of labs and imaging. My note will be sent to PCPand other consulting physicians. Parts of this note were dictated using [employer] voice recognition software. As a result, errors may occur. When identified, these headliner installer errors are corrected, but while every attempt is made to prevent/correct these, errors may still exist. [1] Past Medical History: Diagnosis Date SVT (supraventricular tachycardia) (CMS/HCC) [2] History reviewed. No pertinent surgical history. [3] History reviewed. No pertinent family history. [4] Allergies Allergen Reactions Coconut Fatty Acid Hives Morphine Hives and Other - please document in the comment field itching, tachycardia Sertraline Other - please document in the comment field Dizziness Very emotional (anxiety) [5] Current Outpatient Medications Medication Sig Dispense Refill bisoprolol-hydroCHLOROthiazide (Ziac) 10-6.25 MG tablet Take 1 tablet by mouth daily. escitalopram (Lexapro) 5 MG tablet Take 1 tablet by mouth daily. No current facility-administered medications for this visit. documented in this encounter Plan of Treatment Pending Results Name Type Priority Associated Diagnoses Date /Time Myositis Antibody Panel (SO) Lab Routine Myalgia 05/24/2025 12:13 PM EDT Scheduled Orders Name Type Priority Associated Diagnoses Orde r Schedule Myositis Antibody Panel (SO) Lab Routine Myalgia Expected: 05/24/2025 (Approximate) documented as of this encounter Results * XR Sacroiliac Joints 3+ Views (05/24/2025 1:42 PM EDT) Anatomical Region Laterality Modality Body, Spine, Pelvis Digital Radi ography Impressions 05/24/2025 1:43 PM EDT No erosive changes or evidence of sacroiliitis. CRITICAL RESULT: No. COMMUNICATION: Per this written report. Drafted by Derek Peterson MD on 05/24/2025 1:43 PM Final report signed by Derek Peterson MD on 05/24/2025 1:43 PM Narrative 05/24/2025 1:43 PM EDT CLINICAL INDICATION: ? sacroilitis TECHNIQUE: XR SACROILIAC JOINTS 3+ VIEWS COMPARISON: None. FINDINGS: Clips are seen in the pelvis which may be related to tubal ligation. The sacroiliac joints are symmetric. No erosive changes. No diastases. Procedure Note Derek Peterson MD - 05/24/2025 CLINICAL INDICATION: ? sacroilitis TECHNIQUE: XR SACROILIAC JOINTS 3+ VIEWS COMPARISON: None. FINDINGS: Clips are seen in the pelvis which may be related to tubal ligation. Thesacroiliac joints are symmetric. No erosive changes. No diastases. IMPRESSION: No erosive changes or evidence of sacroiliitis. CRITICAL RESULT: No. COMMUNICATION: Per this written report. Drafted by Derek Peterson MD on 05/24/2025 1:43 PM Final report signed by Derek Peterson MD on 05/24/2025 1:43 PM November Brittany GATE MORTISER OPERATOR IMG XR PROCEDURES Final Res ult * (ABNORMAL) Urinalysis with reflex microscopic (Culture NOT Included) (05/24/2025 12:26 PM EDT) Color, Urine Yellow LAB URINALYSIS - AUTOMATED METHOD 05/24/2025 1:40 PM EDT [facility] Clarity, Urine Clear LAB URINALYSIS - AUTOMATED METHOD 05/24/2025 1:40 PM EDT [facility] Spec [place], Urine 1.015 1.005 - 1.030 LAB URINALYSIS - AUTOMATED METHOD 05/24/2025 1:40 PM EDT [facility] pH, Urine 7.5 5.0 - 8.0 LAB URINALYSIS - AUTOMATED METHOD 05/24/2025 1:40 PM EDT [facility] Protein, Urine Negative Negative mg/dL LAB URINALYSIS - AUTOMATED METHOD 05/24/2025 1:40 PM EDT [facility] Glucose, Urine Negative Negative mg/dL LAB URINALYSIS - AUTOMATED METHOD 05/24/2025 1:40 PM EDT [facility] Ketones, Urine Negative Negative mg/dL LAB URINALYSIS - AUTOMATED METHOD 05/24/2025 1:40 PM EDT [facility] Blood, Urine Negative Negative LAB URINALYSIS - AUTOMATED METHOD 05/24/2025 1:40 PM EDT [facility] Bilirubin, Urine Negative Negative LAB URINALYSIS - AUTOMATED METHOD 05/24/2025 1:40 PM EDT [facility] Urobilinogen, Urine 0.2 0.2 to 1.0 mg/dL LAB URINALYSIS - AUTOMATED METHOD 05/24/2025 1:40 PM EDT [facility] Leukocytes, Urine Trace(A) Negative LAB URINALYSIS - AUTOMATED METHOD 05/24/2025 1:40 PM EDT [facility] Nitrite, Urine Negative Negative LAB URINALYSIS - AUTOMATED METHOD 05/24/2025 1:40 PM EDT [facility] RBC, Urine <1 0 to 3 /HPF LAB URINALYSIS - AUTOMATED METHOD 05/24/2025 1:40 PM EDT [facility] WBC, Urine 6 - 10(A) 0 to 5 /HPF LAB URINALYSIS - AUTOMATED METHOD 05/24/2025 1:40 PM EDT [facility] Squamous Epithelial Cells 0 - 2 0 to 5 /HPF LAB URINALYSIS - AUTOMATED METHOD 05/24/2025 1:40 PM EDT [facility] Hyaline Casts 0 - 2 0 to 5 /LPF LAB URINALYSIS - AUTOMATED METHOD 05/24/2025 1:40 PM EDT [facility] Bacteria, Urine Negative Negative LAB URINALYSIS - AUTOMATED METHOD 05/24/2025 1:40 PM EDT [facility] Urine Urine specimen obtained by clean catch procedure / Unknown Non-blood Collection / Unknown 05/24/2025 12:26 PM EDT 05/24/2025 12:26 PM EDT November R Brittany THURSTONN LAB URINE ORDERABLES Final Result [facility] [address] [place] [address] * Protein, Random, Urine with Creatinine (05/24/2025 12:26 PM EDT) Protein, Urine 10 mg/dL 05/24/2025 1:35 PM EDT [facility] Creatinine, Urine 122 mg/dL 05/24/2025 1:35 PM EDT [facility] Protein/Creatin ine Ratio 0.1 mg/mg Creat 05/24/2025 1:[address] [facility] Urine Urine specimen obtained by clean catch procedure / Unknown Non-blood Collection / Unknown 05/24/2025 12:26 PM EDT 05/24/2025 12:26 PM EDT november R Brittany THURSTONN LAB URINE ORDERABLES Final Result Performing Organization Address [facility] Co de Phone Number [facility] [address] [place] [address] * HLA B27 Typing (05/24/2025 12:13 PM EDT) Blood Venous blood specimen / Unknown Venipuncture / Unknown 05/24/2025 12:13 PM EDT 05/24/2025 12:14 PM EDT november Brittany THURSTONN LAB BLOOD ORDERABLES Final Result Performing Organization Address [facility] [place] [address], [place] * Thyroid Stimulating Hormone, Plasma (05/24/2025 12:13 PM EDT) Thyroid Stimulating Hormone, Plasma 2.60 0.40 - 4.20 uIU/mL 05/24/2025 1:[address] [facility] Blood Venous blood specimen / Unknown Venipuncture / Unknown 05/24/2025 12:13 PM EDT 05/24/2025 12:[address] [facility] - 05/24/2025 1:52 PM EDT Trimester Specific Ranges TSH ( IU/mL) 1st Trimester 0.1 - 3.0 2nd Trimester 0.19 - 4.06 3rd Trimester 0.3 - 3.7 november Brittany GATE MORTISER OPERATOR LAB BLOOD ORDERABLES Final Result Performing Organization Address [facility] Co de Phone Number [facility] [address] [place] [address] * Thyroid Peroxidase Antibody (05/24/2025 12:13 PM EDT) Thyroid Peroxidase Antibody <5 <=8 IU/mL 05/24/2025 3:[address] [facility] Blood Venous blood specimen / Unknown Venipuncture / Unknown 05/24/2025 12:13 PM EDT 05/24/2025 12:14 PM EDT November Brittany JAMES LAB BLOOD ORDERABLES Final Result Performing Organization Address City/[facility]/ZIP Co de Phone Number [facility] [address] [place] [address] * Sosa (FAINA) Antibody, IgG (05/24/2025 12:13 PM EDT) Sosa (FAINA) Antibody, IgG 2 0 - 40 AU/mL 05/25/2025 11:30 PM EDT [facility] ([facility]) Serum 05/24/2025 12:1 3 PM EDT 05/24/2025 12:14 PM EDT Narrative [facility] ([facility]) - 05/25/2025 11:30 PM EDT INTERPRETIVE INFORMATION: Sosa (FAINA) Antibody, IgG 29 AU/mL or Less ............. Negative 30 - 40 AU/mL ................ Equivocal 41 AU/mL or Greater .......... Positive Sosa antibody is highly specific (greater than 90 percent) for systemic lupus erythematosus (SLE) but only occurs in 30-35 percent of SLE cases. The presence of antibodies to Sosa has variable associations with SLE clinical manifestations. Performed By: [facility] [address] [place], [place] [id number] Rounding And Backing Machine Operator: Erick Godoy MD, PhD CLIA Number: [id number] November Brittany JAMES LAB REF LAB BLOOD AND FLUID ORD Final Result Performing Organization Address City/[facility] Co de Phone Number [facility] ([place]) [address] [place] [address] * CBC and Differential (05/24/2025 12:13 PM EDT) WBC Count 8.74 3.70 - 10.30 10*3/uL LAB HEMATOLOGY METHOD 05/24/2025 1:42 PM EDT [facility] RBC Count 4.73 3.90 - 5.20 10*6/uL LAB HEMATOLOGY METHOD 05/24/2025 1:42 PM EDT [facility] HGB 13.4 11.2 - 15.7 g/dL LAB HEMATOLOGY METHOD 05/24/2025 1:42 PM EDT [facility] HCT 39.9 34.0 - 45.0 % LAB HEMATOLOGY METHOD 05/24/2025 1:42 PM EDT [facility] Platelet Count 361 155 - 369 10*3/uL LAB HEMATOLOGY METHOD 05/24/2025 1:42 PM EDT [facility] MCV 84 79 - 98 fL LAB HEMATOLOGY METHOD 05/24/2025 1:42 PM EDT [facility] MCH 28.3 26.0 - 32.0 pg LAB HEMATOLOGY METHOD 05/24/2025 1:42 PM EDT [facility] MCHC 33.6 30.7 - 35.5 g/dL LAB HEMATOLOGY METHOD 05/24/2025 1:42 PM EDT [facility] RDW 13.3 11.5 - 14.5 % LAB HEMATOLOGY METHOD 05/24/2025 1:42 PM EDT [facility] MPV 10.8 8.8 - 12.5 fL LAB HEMATOLOGY METHOD 05/24/2025 1:42 PM EDT [facility] nRBC 0.0 <=0.0 per 100 WBCs LAB HEMATOLOGY METHOD 05/24/2025 1:42 PM EDT [facility] Differential Type Automated LAB HEMATOLOGY METHOD 05/24/2025 1:42 PM EDT [facility] Neutrophils % 60 % LAB HEMATOLOGY METHOD 05/24/2025 1:42 PM EDT [facility] Lymphocytes % 31 % LAB HEMATOLOGY METHOD 05/24/2025 1:42 PM EDT [facility] Monocytes % 7 % LAB HEMATOLOGY METHOD 05/24/2025 1:42 PM EDT [facility] Eosinophils % 1 % LAB HEMATOLOGY METHOD 05/24/2025 1:42 PM EDT [facility] Basophils % 1 % LAB HEMATOLOGY METHOD 05/24/2025 1:42 PM EDT [facility] Immature Granulocytes % 0 % LAB HEMATOLOGY METHOD 05/24/2025 1:42 PM EDT [facility] Neutrophils Absolute 5.36 1.60 - 6.10 10*3/uL LAB HEMATOLOGY METHOD 05/24/2025 1:42 PM EDT [facility] Lymphocytes Absolute 2.70 1.20 - 3.90 10*3/uL LAB HEMATOLOGY METHOD 05/24/2025 1:42 PM EDT [facility] Monocytes Absolute 0.57 0.30 - 0.90 10*3/uL LAB HEMATOLOGY METHOD 05/24/2025 1:42 PM EDT [facility] Eosinophils Absolute 0.06 0.00 - 0.50 10*3/uL LAB HEMATOLOGY METHOD 05/24/2025 1:42 PM EDT [facility] Basophils Absolute 0.04 0.00 - 0.10 10*3/uL LAB HEMATOLOGY METHOD 05/24/2025 1:42 PM EDT [facility] Immature Granulocytes Absolute 0.01 0.00 - 0.06 10*3/uL LAB HEMATOLOGY METHOD 05/24/2025 1:42 PM EDT [facility] Blood Venous blood specimen / Unknown Venipuncture / Unknown 05/24/2025 12:13 PM EDT 05/24/2025 12:14 PM EDT Narrative [facility] - 05/24/2025 1:42 PM EDT Therapeutic decision making should be based on absolute values, rather than percentages. us November R Brittany JAMES LAB BLOOD ORDERABLES Final Result [facility] [address] [place] [address] * C4 Complement (05/24/2025 12:13 PM EDT) C4 Complement 29 13 - 36 mg/dL 05/24/2025 1:46 PM EDT [facility] Blood Venous blood specimen / Unknown Venipuncture / Unknown 05/24/2025 12:13 PM EDT 05/24/2025 12:14 PM EDT november Brittany GATE MORTISER OPERATOR LAB BLOOD ORDERABLES Final Result [facility] [address] [place] [address] * C3 Complement (05/24/2025 12:13 PM EDT) C3 Complement 157 84 - 166 mg/dL 05/24/2025 1:[address] [facility] Blood Venous blood specimen / Unknown Venipuncture / Unknown 05/24/2025 12:13 PM EDT 05/24/2025 12:14 PM EDT november R Brittany GATE MORTISER OPERATOR LAB BLOOD ORDERABLES Final Result Performing Organization Address City/[facility]/ZIP Co de Phone Number [facility] [address] [place] [address] * Double-Stranded DNA (dsDNA) Antibody, IgG by IFA (05/24/2025 12:13 PM EDT) Double-Strande d DNA (dsDNA) Ab IgG IFA <1:10 <1:10 05/26/2025 9:26 AM EDT [facility] ([facility]) Blood Venous blood specimen / Unknown Venipuncture / Unknown 05/24/2025 12:13 PM EDT 05/24/2025 12:14 PM EDT Narrative [facility] ([facility]) - 05/26/2025 9:26 AM EDT INTERPRETIVE INFORMATION: Double-Stranded DNA (dsDNA) Antibody, IgG by IFA (using Crithidia luciliae) Positivity for anti-double stranded DNA (anti-dsDNA) IgG antibody is a diagnostic criterion of systemic lupus erythematosus (SLE). The presence of the anti-dsDNA IgG antibody is identified by IFA titer (Crithidia luciliae indirect fluorescent test [CLINTON]). CLINTON is highly specific for SLE with a sensitivity of 50-60 percent. Some patients with early or inactive SLE may be positive for anti-dsDNA IgG by CRISTAL but negative by CLINTON. If the CLINTON result is negative but the patient has a positive CRISTAL and clinical suspicion remains, consider antinuclear antibody (JAY) testing by IFA. Additional information and recommendations for testing may be found at [email or web address]. Performed By: [facility] [address] [place] [address] Rounding And Backing Machine Operator: Erick Godoy MD, PhD CLIA Number: [id number] november R Brittany GATE MORTISER OPERATOR LAB BLOOD ORDERABLES Final Result [facility] ([place]) [address] [place] [address] * Antinuclear Antibody (JAY), HEp-2, IgG (05/24/2025 12:13 PM EDT) JAY INTERPRETIVE COMMENT See Note 05/26/2025 11:32 PM EDT [facility] ([employer]) Anti Nuc Ab Screen <1:80 <1:80 05/26/2025 11:32 PM EDT [facility] ([facility]) Blood Venous blood specimen / Unknown Venipuncture / Unknown 05/24/2025 12:13 PM EDT 05/24/2025 12:14 PM EDT Narrative [facility] ([facility]) - 05/26/2025 11:32 PM EDT Antinuclear antibodies by IFA negative for homogeneous, speckled, nucleolar, centromere, and nuclear dots patterns. Cytoplasmic antibodies by IFA negative for reticular/AMA, discrete/GW body-like, polar/golgi-like, rods and rings, and cytoplasmic speckled patterns. INTERPRETIVE INFORMATION: JAY Interpretive Comment Presence of antinuclear antibodies (JAY) is a hallmark feature of systemic autoimmune rheumatic diseases (SARD). However, JAY lacks diagnostic specificity and is associated with a variety of diseases (cancers, autoimmune, infectious, and inflammatory conditions) and may also occur in healthy individuals in varying prevalence. The lack of diagnostic specificity requires confirmation of positive JAY by more specific serologic tests. JAY (nuclear reactivity) positive patterns reported include centromere, homogeneous, nuclear dots, nucleolar, or speckled. JAY (cytoplasmic reactivity) positive patterns reported include reticular/AMA, discrete/GW body-like, polar/golgi-like, cytoplasmic speckled or rods and rings. All positive patterns are reported to endpoint titers (1:2560). Reported patterns may help guide differential diagnosis, although they may not be specific for individual antibodies or diseases. Mitotic staining patterns not reported. Negative results do not necessarily rule out SARD. Performed By: [facility] [address] [place] [address] Rounding And Backing Machine Operator: Erick Godoy MD, PhD CLIA Number: [id number] november R Brittany GATE MORTISER OPERATOR LAB BLOOD ORDERABLES Final Result Performing Organization Address [facility] Co de Phone Number [facility] ([place] [address] * Aldolase (05/24/2025 12:13 PM EDT) ALDOLASE 3.0 1.2 - 7.6 U/L 05/25/2025 10:38 PM EDT [facility] ([facility]) Blood Venous blood specimen / Unknown Venipuncture / Unknown 05/24/2025 12:13 PM EDT 05/24/2025 12:14 PM EDT Narrative [facility] ([facility]) - 05/25/2025 10:38 PM EDT REFERENCE INTERVAL: Aldolase Access complete set of age- and/or gender-specific reference intervals for this test in the [facility] ([employer]). Performed By: [facility] [address] [place] [address] Rounding And Backing Machine Operator: Erick Godoy MD, PhD CLIA Number: [id number] november Brittany GATE MORTISER OPERATOR LAB BLOOD ORDERABLES Final Result Performing Organization Address [facility] Co de Phone Number [facility] ([facility]) [address] [place] [address] * Creatine Kinase (CK), Total (05/24/2025 12:13 PM EDT) Creatine Kinase, Plasma 46 37 - 168 U/L 05/24/2025 1:52 PM EDT [facility] Blood Venous blood specimen / Unknown Venipuncture / Unknown 05/24/2025 12:13 PM EDT 05/24/2025 12:14 PM EDT november Brittany GATE MORTISER OPERATOR LAB BLOOD ORDERABLES Final Result [facility] [address] [place] [address] documented in this encounter Visit Diagnoses Diagnosis Polyarthralgia- Primary Pain in joint, multiple sites Myalgia Unspecified myalgia and myositis Polyarthralgia Pain in joint, multiple sites documented in this encounter Additional Health Concerns Assessment Noted Time PHQ-9 Depression Total Score: 0 05/24/20 25 10:57 AM EDT A fall risk assessment has been complete d for the patient 05/24/2025 10:57 AM EDT A Body Mass Index follow-up plan has been documented for the patient 05/24/2025 12:00 PM EDT documented as of this encounter Care Teams Powder Blender And Pourer Relationship Specialty Start Date End Date Sae Gold MD [address] [place] [id number] PCP - General 04/05/21 documented as of this encounter
--- OUTSIDE RECORDS SUMMARY | 2025-05-24 12:16 | XMS_ITS | Encounter Summary ---
Author Organization [facility] Address [address] [id number] Care Team Providers Care Manager Relocation Name Role Phone Sae Gold MD Primary Care Provider [phone] Encounter Details Date Type Department Care Team (Latest Contact Info) Description 05/24/2025 12:16 PM EDT - 05/24/2025 11:59 PM EDT [facility] En[facility] [address] [place] [id number] Polyarthralgia Discharge Disposition: Home or Self Care Social History Tobacco Use Types Packs/Day Years Used Date Smoking Tobacco: Never Passive Smoke Exposure: Current Smokeless Tobacco: Never PHQ-2 Answer Date Recorded Patient Health Questionnaire-2 Score 0 05/24/2025 PHQ-9 Answer Date Recorded Patient Health Questionnaire-9 Score 0 05/24/2025 Comments Unknown Sex and Gender Information Value Date Recorded Sex Assigned at Not on file Legal Sex Female 7:08 PM EDT Gender Identity Not on file Sexual Orientation Not on file documented as of this encounter Functional Status * Over the past 2 weeks, how often have you been bothered by any of the following problems? Question Answer Date of Assessment Author Little interest or pleasure in doing things Not at all 05/24/2025 10:57 AM EDT Bertin Tempest A Feeling down, depressed, or hopeless Not at all 05/24/2025 10:57 AM EDT Denton, Tempest A Patient Health Questionnaire -2 Score 0 05/24/2025 10:57 AM EDT Bertin Tempest A * Question Answer Date of Assessment Author Trouble falling or staying asleep, or sleeping too much Not at all 05/24/2025 10:57 AM EDT Bertin Tempest A Feeling tired or having selene le energy Not at all 05/24/2025 10:57 AM EDT Bertin Tempest A Poor appetite or overeating Not at all 05/24/2025 10 :57 AM EDT Bertin Tempest A Feeling bad about yourself - or that you are a failure or have let yourself or your family down Not at all 05/24/2025 10:57 AM EDT Gwen vuong Tempest A Trouble concentrating on thi ngs, such as reading the newspaper or watching television Not at all 05/24/2025 10:57 AM EDT Bertin Tempest A Moving or speaking so slowly that [...] difficult at all 05/24/2025 10:57 AM EDT Jorge Dentonpest A documented as of this encounter Medications at Time of Discharge bisoprolol-hydroC HLOROthiazide (Ziac) 10-6.25 MG tablet Take 1 tablet by mouth daily. escitalopram (Lexapro) 5 MG tablet Take 1 tablet by mouth daily. documented as of this encounter Plan of Treatment Not on file documented as of this encounter Procedures Procedure Name Priority Date/Time Associated Diagnosis Comments XR SACROILIAC JOINTS 3+ VIEWS Routine 05/24/2025 1:42 PM EDT Polyarthralgia documented in this encounter Results * XR Sacroiliac Joints [...] MD on 05/24/2025 1:43 PM November Brittany CLINICAL INFORMATION SYSTEMS DIRECTOR IMG XR PROCEDURES Final Res ult documented in this encounter Visit Diagnoses Diagnosis Polyarthralgia Pain in joint, multiple sites documented [...] documented as of this encounter Care Teams Manager Relocation Relationship Specialty Start Date End Date Sae Gold MD [address] [place] [address] PCP - General 04/05/21 documented as of this encounter
--- NOTE | 2025-05-31 | CA_ITS ---
APPROVED REPORT Exam: Exercise Treadmill Technologist: Soila Whitten Ht: 5 ft 4 in Wt: 206 lbs BSA: 1.98 m2 Medical History Medications: bisoprolol-hctz Stress Test Details Test: Exercise stress testing was performed using a Timothy protocol. HR Resting HR: 67 bpm Max Heart Rate (APMHR): 183.287013 bpm Max HR Achieved: 172 bpm Target HR (85% APMHR): 155.021919 bpm % of APMHR: 93.99 Recovery HR: 108 bpm BP Resting BP: 119.0/86.0 mmHg Max BP: 189.0/88.0 mmHg Recovery BP: 150.0/81.0 mmHg ECG Resting ECG: SR. T-wave inversion V3-V5 Clinical Highest Stage Achieved: III Stress ECG Conclusion Injected @ 6:50 Symptoms: SOA. Arrhythmias/Ectopy: Occasional PVCs. ST-T Changes: None. Electronically signed by : Lisa Palomares MD 06/02/2025 17:57:44
--- OUTSIDE RECORDS SUMMARY | 2025-05-31 07:32 | XMS_ITS | Clinical Summary ---
Author Organization [facility] ([place], [place], [place], [place]) Address [address] [place] [address] Care Team Providers Care Esthetician Permanent Makeup Artist Name Role Phone Shahid Tracey MD Primary Care Provider [phone] Allergies Active Allergy Reactions Criticality Noted Date [...] drink = 0.6 oz pur e alcohol) Family and Community Support Answer Ronal e Recorded Help with Day to Day Activities Not on file 12/11/2023 Feeling Lonely or Isolated Not on file 12/11 Educational Attainment Answer Date Gus rded Speak language other than Fijian at home Not on file 12/11/2023 Want help with school or training Not on file 12/11/2023 Substance Use Answer Date Recorded Used [...] and Screening (12+) 04/24/2024 04/24/2023 COVID-19 VACCINE (3 - season) 2024 08/14/2021, 02/20/2021 Influenza Vaccine (#1) 2025 Pneumococcal Vaccine: 0-49 Years Aged Out 09/04/2008, 02/16/2008, 12/15/2007, Additional history exists No longer eligible based on patient's age to complete this topic Insurance [facility] CHOICE PLUS Advance Directives For more information, please contact: [phone] Documents on File Type Date Recorded Patient Reproduction Order Processor Expl anation Advance Directives and Livin g Will 05/25/2023 9:14 AM Care Teams Esthetician Permanent Makeup Artist Relationship Specialty Start Date End Date Shahid Tracey MD [address] [place] [phone] PCP - General Family Medicine 04/24/23
--- OUTSIDE RECORDS SUMMARY | 2025-05-31 07:32 | XMS_ITS | Referral Summary ---
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 [address] PCP - General Family Medicine 04/24/23
--- OUTSIDE RECORDS SUMMARY | 2025-05-31 07:32 | XMS_ITS | Clinical Summary ---
Author Organization [facility] Address [address] [place] [address] Care Team Providers Care Leg Assembler Name Role Phone Sae Gold MD Primary Care Provider [phone] Allergies Active Allergy Reactions Criticality Noted Date Comments Coconut Fatty Acid Hives Medium 05/24/2025 Morphine Hives,Other - please document in the comment field Medium 07/28/2015 itching, tachycardia Sertraline Other - please document in the comment field Low 04/23/2023 Dizziness Very emotional (anxiety) Medications bisoprolol-hydro CHLOROthiazide (Ziac) 10-6.25 MG tablet Take 1 tablet by mouth daily. Active escitalopram (Lexapro) 5 MG tablet Take 1 tablet by mouth daily. Active Active Problems No known active problems Encounters Date Type Department Care Team Description 05/24/2025 12:16 PM EDT - 05/24/2025 11:59 PM EDT Hospital Encounter [facility] Radiology [address] [place] [id number] Polyarthralgia Discharge Disposition: Home or Self Care 05/24/2025 11:00 AM EDT Consult [facility] Medicine Specialties [address] [place] [id number] Monique Soto APRN Polyarthralgia (Primary Dx); Myalgia 05/24/2025 Travel from Last 3 Months Immunizations Immunization Administration Dates Next Due DTaP / Hep B / IPV 02/16/2008 DTaP, Unspecified 01/09/2009 Hep A, ped/adol, 2 dose 09/04/2008 Hib (PRP-OMP) 12/15/2007,10/12/2007 Moderna COVID-19 Vaccine (Re d Cap) 12+ years 08/14/2021,02/20/2021 Pneumococcal Conjugate PCV 7 09/04/2008, 02/16/2008,12/15/2007,2006 Social History Tobacco Use Types Packs/Day Years [...] Mass Index 34.97 05/24/2025 10:59 AM EDT Plan of Treatment Health Maintenance Due Date Last Done Comments [facility]-HIV Screening 1987 [facility]-Hepatitis C Screening 1987 [facility]-/Child/Adol SDOH Screenings 1987 [facility]-Varicella Vaccines (1 of 2 - 13+ 2-dose series) 2000 HPV Vaccines (1 - 3-dose series) 2002 [facility]- SDOH Screenings 2005 [facility]-Adult SDOH Screenings 2005 [facility]-Hepatitis B Vaccines (2 of 3 - 19+ 3-dose series) 03/15/2008 02/16/2008 [facility]-IPV Vaccines (2 of 3 - Adult catch-up series) 03/15/2008 02/16/2008 [facility]-Pap Smear 2008 [facility]-Cervical Cancer Screening 2017 [facility]-HPV/Cotest 2017 [facility]-DTaP,Tdap,and Td Vaccines (3 - Tdap) 01/09/2019 01/09/2009, 02/16/2008 [id number] Vaccine (3 - season) 2024 08/14/2021, 02/20/2021 [facility]-Influenza Vaccine (#1) 2025 [facility]-Depression Screening 05/24/2026 05/24/2025, 0712/2024 [facility]-Zoster Vaccines (1 of 2) 2037 [facility]-HIB Vaccines Aged Out 12/15/2007, 10/12/2007 N o longer eligible based on patient's age to complete this topic [facility]-Hepatitis A Vaccines Aged Out 09/04/2008 No longer eligible based on patient's age to complete this topic [facility]-Pneumococcal Vaccine: Pediatrics (0 to 5 Years) and At-Risk Patients (6 to 49 Years) Aged Out 09/04/2008, 02/16/2008, 12/15/2007, Additional history exists No longer eligible based on patient's age to complete this topic [facility]-Obesity Intervention Completed 05/24/2025 [facility]-Rotavirus Vaccines Aged Out No lo nger eligible based on patient's age to complete this topic Procedures Procedure Name Priority Date/Time Associated Diagnosis Comments XR SACROILIAC JOINTS 3+ VIEWS Routine 05/24/2025 1:42 PM EDT Polyarthralgia URINALYSIS MICROSCOPIC FOR UA REFLEX Routine 05/24/2025 12:26 PM EDT Polyarthralgia URINALYSIS WITH REFLEX MICROSCOPIC Routine 05/24/2025 12:26 PM EDT Polyarthralgia PROTEIN, URINE, RANDOM WITH CREATININE Routine 05/24/2025 12:26 PM EDT Polyarthralgia DNA ISOLATION AND HOLD (HLA) Routine 05/24/2025 12:13 PM EDT Polyarthralgia CREATINE KINASE, TOTAL, PLASMA Routine 05/24/2025 12:13 PM EDT Myalgia ALDOLASE Routine 05/24/2025 12:13 PM EDT Myalgia ANTINUCLEAR ANTIBODY (JAY) WITH HEP-2 SUBSTRATE, IGG BY IFA (SO) Routine 05/24/2025 12:13 PM EDT Polyarthralgia DOUBLE-STRANDED DNA (DSDNA) ANTIBODY, IGG BY IFA (SO) Routine 05/24/2025 12:13 PM EDT Polyarthralgia C3 COMPLEMENT Routine 05/24/2025 12:13 PM EDT Polyarthralgia C4 COMPLEMENT Routine 05/24/2025 12:13 PM EDT Polyarthralgia CBC WITH AUTO DIFFERENTIAL Routine 05/24/2025 12:13 PM EDT Polyarthralgia SOSA (FAINA) ANTIBODY, IGG (SO) Routine 05/24/2025 12:13 PM EDT Polyarthralgia THYROID PEROXIDASE ANTIBODY Routine 05/24/2025 12:13 PM EDT Polyarthralgia TSH Routine 05/24/2025 12:13 PM EDT Polyarthralgia HLA B27 TYPING Routine 05/24/2025 12:13 PM EDT Polyarthralgia from Last 3 Months Results * XR Sacroiliac Joints 3+ Views [...] Peterson MD on 05/24/2025 1:43 PM November R Brittany JAMES IMG XR PROCEDURES Final Res ult * Urinalysis Microscopic Examination (05/24/2025 12:26 PM EDT) Urine Urine specimen obtained by clean catch procedure / Unknown Non-blood Collection / Unknown 05/24/2025 12:26 PM EDT 05/24/2025 12:26 PM EDT November R Brittany JAMES LAB URINE ORDERABLES Final Result [facility] [address] [place] [address] * Protein, Random, Urine with Creatinine (05/24/2025 12:26 PM EDT) Protein, Urine 10 mg/dL 05/24/2025 1:35 PM EDT [facility] Creatinine, Urine 122 mg/dL 05/24/2025 1:35 PM EDT [facility] Protein/Creatin ine Ratio 0.1 mg/mg Creat 05/24/2025 1:35 PM EDT [facility] Urine Urine specimen obtained by clean catch procedure / Unknown Non-blood Collection / Unknown 05/24/2025 12:26 PM EDT 05/24/2025 12:26 PM EDT november R Brittany ERIKA LAB URINE ORDERABLES Final Result [facility] [address] [place] [address] * (ABNORMAL) Urinalysis with reflex microscopic (Culture NOT Included) (05/24/2025 12:26 PM EDT) Color, Urine Yellow LAB URINALYSIS - AUTOMATED METHOD 05/24/2025 1:40 PM EDT [facility] Clarity, Urine Clear LAB URINALYSIS - AUTOMATED METHOD 05/24/2025 1:40 PM EDT [facility] Spec [place], Urine 1.015 1.005 - 1.030 LAB URINALYSIS - AUTOMATED METHOD 05/24/2025 1:40 PM EDT [facility] pH, Urine 7.5 5.0 - 8.0 LAB URINALYSIS - AUTOMATED METHOD 05/24/2025 1:40 PM EDT [facility] Protein, Urine Negative Negative mg/dL LAB URINALYSIS - AUTOMATED METHOD 05/24/2025 1:40 PM EDT [facility] Glucose, Urine Negative Negative mg/dL LAB URINALYSIS - AUTOMATED METHOD 05/24/2025 1:40 PM EDT [facility] Ketones, Urine Negative Negative mg/dL LAB URINALYSIS - AUTOMATED METHOD 05/24/2025 1:40 PM EDT [facility] Blood, Urine Negative Negative LAB URINALYSIS - AUTOMATED METHOD 05/24/2025 1:40 PM EDT [facility] Bilirubin, Urine Negative Negative LAB URINALYSIS - AUTOMATED METHOD 05/24/2025 1:40 PM EDT [facility] Urobilinogen, Urine 0.2 0.2 to 1.0 mg/dL LAB URINALYSIS - AUTOMATED METHOD 05/24/2025 1:40 PM EDT [facility] Leukocytes, Urine Trace(A) Negative LAB URINALYSIS - AUTOMATED METHOD 05/24/2025 1:40 PM EDT [facility] Nitrite, Urine Negative Negative LAB URINALYSIS - AUTOMATED METHOD 05/24/2025 1:40 PM EDT [facility] RBC, Urine <1 0 to 3 /HPF LAB URINALYSIS - AUTOMATED METHOD 05/24/2025 1:40 PM EDT [facility] WBC, Urine 6 - 10(A) 0 to 5 /HPF LAB URINALYSIS - AUTOMATED METHOD 05/24/2025 1:40 PM EDT [facility] Squamous Epithelial Cells 0 - 2 0 to 5 /HPF LAB URINALYSIS - AUTOMATED METHOD 05/24/2025 1:40 PM EDT [facility] Hyaline Casts 0 - 2 0 to 5 /LPF LAB URINALYSIS - AUTOMATED METHOD 05/24/2025 1:40 PM EDT [facility] Bacteria, Urine Negative Negative LAB URINALYSIS - AUTOMATED METHOD 05/24/2025 1:40 PM EDT [facility] Urine Urine specimen obtained by clean catch procedure / Unknown Non-blood Collection / Unknown 05/24/2025 12:26 PM EDT 05/24/2025 12:26 PM EDT november R Brittany FOOD WRITER LAB URINE ORDERABLES Final Result [facility] [address] [place] [address] * DNA Isolation and Hold (HLA) (05/24/2025 12:13 PM EDT) Blood Venous blood specimen / Unknown Venipuncture / Unknown 05/24/2025 12:13 PM EDT 05/24/2025 12:14 PM EDT november R Brittany FOOD WRITER LAB MOLECULAR DIAGNOSTICS O RDERABLES Final Result [facility] [address] [place] [address], [place] * Ian (FAINA) Antibody, IgG (05/24/2025 12:13 PM EDT) Pathologist Xiao Sosa (FAINA) Antibody, IgG 2 0 - 40 AU/mL 05/25/2025 11:30 PM EDT [facility] (BEAKER) Serum 05/24/2025 12:1 3 PM EDT 05/24/2025 12:14 PM EDT Narrative [facility]) - 05/25/2025 11:30 PM EDT INTERPRETIVE INFORMATION: [...] associations with SLE clinical manifestations. Performed By: [facility] [address] [place] [id number] Order Packer Or Packager: Erick Godoy MD, PhD CLIA Number: [id number] November Brittany FOOD WRITER LAB REF LAB BLOOD AND FLUID ORD Final Result Performing Organization Address City/[facility]/ZIP Co de Phone Number [facility] ([facility]) [address] [place] [id number] * Creatine Kinase (CK), Total (05/24/2025 12:13 PM EDT) [facility] Creatine Kinase, Plasma 46 37 - 168 U/L 05/24/2025 1:52 PM EDT [facility] Blood Venous blood specimen / Unknown Venipuncture / Unknown 05/24/2025 12:13 PM EDT 05/24/2025 12:14 PM EDT November Brittany THURSTONN LAB BLOOD ORDERABLES Final Result [facility] [address] [place] [address] * HLA B27 Typing (05/24/2025 12:13 PM EDT) Blood Venous blood specimen / Unknown Venipuncture / Unknown 05/24/2025 12:13 PM EDT 05/24/2025 12:14 PM EDT november Brittany FOOD WRITER LAB BLOOD ORDERABLES Final Result [facility] [address] [place] [address], * Thyroid Peroxidase Antibody (05/24/2025 12:13 PM EDT) Thyroid Peroxidase Antibody <5 <=8 IU/mL 05/24/2025 3:25 PM EDT [facility] Blood Venous blood specimen / Unknown Venipuncture / Unknown 05/24/2025 12:13 PM EDT 05/24/2025 12:14 PM EDT november R Brittany FOOD WRITER LAB BLOOD ORDERABLES Final Result [facility] [address] [place] [address] * Double-Stranded DNA (dsDNA) Antibody, IgG by IFA (05/24/2025 12:13 PM EDT) Pathologist [facility] Double-Strande d DNA (dsDNA) Ab IgG IFA <1:10 <1:10 05/26/2025 9:26 AM EDT [facility] ([facility]) Blood Venous blood specimen / Unknown Venipuncture / Unknown 05/24/2025 12:13 PM EDT 05/24/2025 12:14 PM EDT Narrative [facility] ([facility]) - 05/26/2025 9:26 AM EDT [...] recommendations for testing may be found at [email or web address]. Performed By: [facility] [address] [place] [address] Order Packer Or Packager: Erick Godoy MD, PhD CLIA Number: [id number] November R Brittany FOOD WRITER LAB BLOOD ORDERABLES Final Result Performing Organization Address [facility]/ZIP Co de Phone Number [place] [address] * Aldolase (05/24/2025 12:13 PM EDT) ALDOLASE 3.0 1.2 - 7.6 U/L 05/25/2025 10:38 PM EDT [facility]) Blood Venous blood specimen / Unknown Venipuncture / Unknown 05/24/2025 12:13 PM EDT 05/24/2025 12:14 PM EDT Narrative [facility]) - 05/25/2025 10:38 PM EDT REFERENCE INTERVAL: Aldolase Access complete set of age- and/or gender-specific reference intervals for this test in the [facility] Test Directory ([employer]). Performed By: [facility] [address] [place] [address] Order Packer Or Packager: Erick Godoy MD, PhD CLIA Number: [id number] November Brittany FOOD WRITER LAB BLOOD ORDERABLES Final Result Performing Organization Address [facility] Co de Phone Number [facility]) [address] [place] [address] * CBC and Differential (05/24/2025 12:13 PM EDT) WBC Count 8.74 3.70 - 10.30 10*3/uL LAB HEMATOLOGY METHOD 05/24/2025 1:42 PM EDT [facility] RBC Count 4.73 3.90 - 5.20 10*6/uL LAB HEMATOLOGY METHOD 05/24/2025 1:42 PM EDT [facility] HGB 13.4 11.2 - 15.7 g/dL LAB HEMATOLOGY METHOD 05/24/2025 1:42 PM EDT [facility] HCT 39.9 34.0 - 45.0 % LAB HEMATOLOGY METHOD 05/24/2025 1:42 PM EDT [facility] Platelet Count 361 155 - 369 10*3/uL LAB HEMATOLOGY METHOD 05/24/2025 1:42 PM EDT [facility] MCV 84 79 - 98 fL LAB HEMATOLOGY METHOD 05/24/2025 1:42 PM EDT [facility] MCH 28.3 26.0 - 32.0 pg LAB HEMATOLOGY METHOD 05/24/2025 1:42 PM EDT [facility] MCHC 33.6 30.7 - 35.5 g/dL LAB HEMATOLOGY METHOD 05/24/2025 1:42 PM EDT [facility] RDW 13.3 11.5 - 14.5 % LAB HEMATOLOGY METHOD 05/24/2025 1:42 PM EDT [facility] MPV 10.8 8.8 - 12.5 fL LAB HEMATOLOGY METHOD 05/24/2025 1:42 PM EDT [facility] nRBC 0.0 <=0.0 per 100 WBCs LAB HEMATOLOGY METHOD 05/24/2025 1:42 PM EDT [facility] Differential Type Automated LAB HEMATOLOGY METHOD 05/24/2025 1:42 PM EDT [facility] Neutrophils % 60 % LAB HEMATOLOGY METHOD 05/24/2025 1:42 PM EDT [facility] Lymphocytes % 31 % LAB HEMATOLOGY METHOD 05/24/2025 1:42 PM EDT [facility] Monocytes % 7 % LAB HEMATOLOGY METHOD 05/24/2025 1:42 PM EDT [facility] Eosinophils % 1 % LAB HEMATOLOGY METHOD 05/24/2025 1:42 PM EDT [facility] Basophils % 1 % LAB HEMATOLOGY METHOD 05/24/2025 1:42 PM EDT [facility] Immature Granulocytes % 0 % LAB HEMATOLOGY METHOD 05/24/2025 1:42 PM EDT [facility] Neutrophils Absolute 5.36 1.60 - 6.10 10*3/uL LAB HEMATOLOGY METHOD 05/24/2025 1:42 PM EDT [facility] Lymphocytes Absolute 2.70 1.20 - 3.90 10*3/uL LAB HEMATOLOGY METHOD 05/24/2025 1:42 PM EDT [facility] Monocytes Absolute 0.57 0.30 - 0.90 10*3/uL LAB HEMATOLOGY METHOD 05/24/2025 1:42 PM EDT [facility] Eosinophils Absolute 0.06 0.00 - 0.50 10*3/uL LAB HEMATOLOGY METHOD 05/24/2025 1:42 PM EDT [facility] Basophils Absolute 0.04 0.00 - 0.10 10*3/uL LAB HEMATOLOGY METHOD 05/24/2025 1:42 PM EDT [facility] Immature Granulocytes Absolute 0.01 0.00 - 0.06 10*3/uL LAB HEMATOLOGY METHOD 05/24/2025 1:42 PM EDT [facility] Blood Venous blood specimen / Unknown Venipuncture / Unknown 05/24/2025 12:13 PM EDT 05/24/2025 12:14 PM EDT Narrative [facility] - 05/24/2025 1:42 PM EDT Therapeutic decision making should be based on absolute values, rather than percentages. us November R Brittany FOOD WRITER LAB BLOOD ORDERABLES Final Result [facility] [address] [place] [address] * C3 Complement (05/24/2025 12:13 PM EDT) C3 Complement 157 84 - 166 mg/dL 05/24/2025 1:46 PM EDT [facility] Blood Venous blood specimen / Unknown Venipuncture / Unknown 05/24/2025 12:13 PM EDT 05/24/2025 12:14 PM EDT november Brittany FOOD WRITER LAB BLOOD ORDERABLES Final Result [facility] [address] [place] [address] * C4 Complement (05/24/2025 12:13 PM EDT) C4 Complement 29 13 - 36 mg/dL 05/24/2025 1:46 PM EDT [facility] Blood Venous blood specimen / Unknown Venipuncture / Unknown 05/24/2025 12:13 PM EDT 05/24/2025 12:14 PM EDT november R Brittany JAMES LAB BLOOD ORDERABLES Final Result [facility] [address] [place] [address] * Antinuclear Antibody (JAY), HEp-2, IgG (05/24/2025 12:13 PM EDT) JAY INTERPRETIVE COMMENT See Note 05/26/2025 11:32 PM EDT [facility] ([employer]) Anti Nuc Ab Screen <1:80 <1:80 05/26/2025 11:32 PM EDT [facility] ([employer]) Blood Venous blood specimen / Unknown Venipuncture / Unknown 05/24/2025 12:13 PM EDT 05/24/2025 12:14 PM EDT Narrative [facility] ([facility]) - 05/26/2025 11:32 PM EDT [...] not necessarily rule out SARD. Performed By: [facility] [address] [place] [address] Order Packer Or Packager: Erick Godoy MD, PhD CLIA Number: [id number] November R Brittany FOOD WRITER LAB BLOOD ORDERABLES Final Result [facility] ([facility]) [address] [place] [address] * Thyroid Stimulating Hormone, Plasma (05/24/2025 12:13 PM EDT) Thyroid Stimulating Hormone, Plasma 2.60 0.40 - 4.20 uIU/mL 05/24/2025 1:52 PM EDT [facility] Blood Venous blood specimen / Unknown Venipuncture / Unknown 05/24/2025 12:13 PM EDT 05/24/2025 12:14 PM EDT Narrative [facility] - 05/24/2025 1:52 PM EDT Trimester Specific Ranges TSH ( IU/mL) 1st Trimester 0.1 - 3.0 2nd Trimester 0.19 - 4.06 3rd Trimester 0.3 - 3.7 November Brittany FOOD WRITER LAB BLOOD ORDERABLES Final Result [facility] [address] [place] [address] from Last 3 Months Insurance [employer] [facility] MEDICAID Care Teams Leg Assembler Relationship Specialty Start Date End Date Asif, Sae R, MD [address] [place] [address] PCP - General 04/05/21
--- OUTSIDE RECORDS SUMMARY | 2025-05-31 07:32 | XMS_ITS | Encounter Summary ---
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 Name Role Phone Sae Gold MD Primary Care Provider [phone] Encounter Details Date Type Department Care Team (Latest Contact Info) Description 05/24/2025 Travel Social History Tobacco Use Types Packs/Day Years [...] 05/24/2025 10:57 AM EDT Denton, Tempest A Feeling down, depressed, or hopeless Not at all 05/24/2025 10:57 AM EDT Denton, Tempest A Patient Health Questionnaire -2 Score 0 05/24/2025 10:57 AM EDT Denton, Tempest A * Question Answer Date of Assessment Author Trouble falling or staying asleep, or sleeping too much Not at all 05/24/2025 10:57 AM EDT Denton, Tempest A Feeling tired or having selene le energy Not at all 05/24/2025 10:57 AM EDT Denton, Tempest A Poor appetite or overeating Not at all 05/24/2025 10 :57 AM EDT Denton, Tempest A Feeling bad about yourself - [...] 05/24/2025 10:57 AM EDT Maryam Denton A Thoughts that you would be better off or hurting yourself in some way Not at all 05/24/2025 10:57 AM EDT Maryam Denton A Patient Health Questionnaire -9 Score 0 05/24/2025 10:57 AM EDT Maryam Denton A * If you checked off any problems on this questionnaire so far, Question Answer Date of Assessment Author How difficult have these problems made it for you to do your work, take care of things at home, or get along with other people? Not difficult at all 05/24/2025 10:57 AM EDT Maryam Denton A documented as of this encounter Plan of Treatment Not on file documented as of this encounter Visit Diagnoses Not on filedocumented in this encounter Additional Health Concerns Assessment Noted Time PHQ-9 Depression Total Score: 0 05/24/20 25 10:57 AM EDT A fall risk assessment has been complete d for the patient 05/24/2025 10:57 AM EDT A Body Mass Index follow-up plan has been documented for the patient 05/24/2025 12:00 PM EDT documented as of this encounter Care Teams Nuclear Power Plant Engineer Relationship Specialty Start Date End Date Sae Gold MD [address] [place] [address] PCP - General 04/05/21 documented as of this encounter
--- NOTE | 2025-05-31 08:00 | NM_ITS ---
APPROVED REPORT Exam: Nuclear Stress Test Indication: Chest pain, SOB, HTN, High cholesterol, Family history Patient Location: Outpatient Stress Tech: Soila Akbar [place] Tech:Debbi Bower, ARRT, RT (R)(N) Ht: 5 ft 4 in Wt: 203 lbs Bra Size: 36B HR: 67 bpm BP: 119/86 mmHg BSA: 1.97 m2 TID: 1.06 BMI: 34.8 History: Chest pain, SOB, HTN, High cholesterol, Family history Procedure: Patient exercised on Timothy protocol 8:08 minutes and sec, resting heart rate 67 bpm, resting blood pressure 119/86 mmHg, with exercise maximum heart rate achived was 172 bpm which is 93 % of the maximum predicted heart rate and blood pressure was 189/88 mmHg. Test was stopped due to leg fatigue. Patient denied any complaint of chest pain. Patient has average exercise capacity, achieved 8.6 METs of workload on treadmill, the blood pressure response to exercise was normal. Cardiac Stress and Resting SPECT Images: Cardiac Stress and Resting SPECT images were obtained using technetium 99m Myoview 31.8 mCi stress and 10.57 mCi at rest. Raw images demonstrate significant soft tissue overlap with the cardiac borders. This may affect the diagnostic interpretation of the study findings. Soft tissue attenuation is present. Resting and stress imaging in supine and prone positions demonstrate no evidence of fixed or reversible perfusion defects. Gated imaging demonstrates low-normal global and regional LV systolic function. LVEF is calculated at 50%. Conclusion: Soft tissue attenuation is present. No evidence of fixed or reversible perfusion defects. Gated imaging demonstrates low-normal global and regional LV systolic function. LVEF is calculated at 50%. Electronically signed by : Lisa Palomares MD 06/02/2025 17:45:21
[2025-05-31] MEDS: SODIUM CHLORIDE 0.9% 10ML SYR (RAD ONLY) 10 ML IV ×2 (09:29)
[2025-05-31] MEDS: ISOTOPE MYOVIEW (PER STUDY) 1 DOSE IV (09:29)
--- NOTE | 2025-05-31 10:45 | CA_ITS ---
APPROVED REPORT EXAM: Comprehensive 2D, Doppler, and color-flow Echocardiogram Shift Commander: Reshma Coe, RCS, RVS Ht: 5 ft 4 in Wt: 206lbs BSA: 1.98 BP: 115/74 mmHg Indications: SOA, Palpitations, SVT 2D Dimensions Left Atrium 3.41 cm F: 2.7 - 3.8 M-Mode Dimensions RVDd 1.81 cm (0.9-2.6) LA Diam 3.44 cm (1.9-4.0) LVDd 5.15 cm (3.5-5.7) LVDs 3.37 cm (3.5-5.7) IVSd 1.00 cm (0.6-1.1) PWd 0.91 cm (0.6-1.1) EF (Teich) 63.30% EPSs 0.68 cm FS 34.60% EDV (Teich) 126.60 mL TAPSE 2.05 (<1.7) ESV (Teich) 46.40 mL LV Diastology E Decel Time 207 (160-240 msec) E/A Ratio 1.42 MED A' 9.90 cm/s LAT A' 6.50 cm/s Aortic Valve GLENN Index 1.27 cm2/m2 AoV Peak Brian. 109.0 (50-130 cm/s) AO Peak GR. 4.70 mmHg AO Mean GR. 2.40 (<5 mmHg) AO VTI 19.1 (18-25 cm) GLENN (VTI) 2.58 (2.5-4.5 cm2) Mitral Valve MV A Velocity 44.0 (40-130 cm/s) E/A Ratio 1.42 Left Ventricle The left ventricle is normal size. The left ventricular systolic function is normal. The left ventricular ejection fraction is within the normal range. There is normal left ventricular wall thickness. There is normal LV segmental wall motion. The left ventricular diastolic function is normal. LVEF is 55%. Right Ventricle The right ventricle is normal size. The right ventricular systolic function is normal. Atria The left atrium size is normal. The right atrium size is normal. There is no Doppler evidence of interatrial shunt. Aortic Valve The aortic valve opens well. There is no aortic valvular stenosis. No aortic regurgitation is present. Mitral Valve The mitral valve is normal in structure. No evidence of mitral valve stenosis. There is no mitral valve regurgitation noted. Tricuspid Valve Tricuspid valve is grossly normal in structure and function. Trace tricuspid regurgitation. There is insufficient TR jet to estimate RVSP. Pulmonic Valve The pulmonary valve is normal in structure. Trace pulmonic regurgitation. Great Vessels The aortic root is normal in size. IVC is normal in size and collapses >50% with inspiration. Pericardium There is no pericardial effusion. Other Information Study Quality: Adequate Conclusion Normal biventricular systolic function. No significant valvular stenosis or regurgitation. Electronically signed by : Lisa Palomares MD 06/03/2025 01:01:52
== END 2025-05-31 23:59 | disposition home or self-care (01) ==
LOC: RAD 07:30
PROVIDERS: PCP Nurse Practitioner Family; Visit Provider Nurse Practitioner
DX: I34.1 Nonrheumatic mitral (valve) prolapse (principal); G47.33 Obstructive sleep apnea (adult) (pediatric); I47.10 Supraventricular tachycardia, unspecified; I10 Essential (primary) hypertension; E78.00 Pure hypercholesterolemia, unspecified; R94.31 Abnormal electrocardiogram [ECG] [EKG]
CPT/HCPCS: 78452; 93016; 93017; 93018; 93306; A9502